=== PATIENT | male | born 1970 | race Caucasian/White ===

== ENCOUNTER 2023-03-02 16:42 | Inpatient (IN) | payer OTHER, SELFPAY ==
[2023-03-02] VITALS (16 sets, daily range): BP systolic 147–254; BP diastolic 84–138; PULSE 99–124; RESP 16–28; TEMP 36.4–36.9; O2SAT 86–94; BMI 36.6
--- NOTE | 2023-03-02 17:04 | EKG12_ITS ---
Test Reason : CP Blood Pressure : / mmHG Vent. Rate : 123 BPM Atrial Rate : 123 BPM P-R Int : 152 ms QRS Dur : 086 ms QT Int : 316 ms P-R-T Axes : 042 053 -37 degrees QTc Int : 452 ms Poor data quality, interpretation may be adversely affected Sinus tachycardia Possible Left atrial enlargement Nonspecific T wave abnormality Abnormal ECG Confirmed by SHERICE LITTLE, KATHARINA ([id number]), editor sound CONNOR MOSQUEDA ([id number]) on 03/11/2023 2:09:24 PM Referred By: COURTNEY/BREANA Confirmed By:KATHARINA SMILEY MD
--- NOTE | 2023-03-02 17:04 | CT_ITS ---
STUDY: CTA CHEST REASON FOR EXAM: Male, 52 years old. dyspnea RADIATION DOSAGE (If Supplied By Facility): CTDIvol = ( 15.04 ) mGy, DLP = ( 589.33 ) mGycm TECHNIQUE: The examination was performed with the intravenous administration of IV 100mL Isovue-370. Post-processing of the angiographic images was performed, with multiplanar reformation and 3D reconstruction. Individualized dose optimization techniques were used for this CT. COMPARISON: None. FINDINGS: Normal enhancement of the main pulmonary artery and right and left pulmonary arteries. Normal enhancement of the bilateral peripheral pulmonary arteries. There is no demonstrated pulmonary embolism. Normal thoracic aorta and visualized great vessels. There is no demonstrated aortic dissection. Heart is mildly enlarged. There is a small pericardial effusion and mild coronary artery calcification Normal mediastinum. Normal hilar regions. Normal visualized trachea and bronchi. The lungs are well expanded. There is bilateral interstitial thickening with multifocal patchy and diffuse groundglass opacity most likely representing pulmonary interstitial edema although coexisting inflammatory disease not excluded. There are small bilateral pleural effusions Normal chest wall structures. Normal osseous structures. Normal visualized upper abdomen. CT/CTA Chest W/WO Contrast IMPRESSION: Probable congestive failure with small pleural effusions.. Cannot definitively exclude coexisting inflammatory disease. No evidence for pulmonary embolus Electronically Signed: Arcadio Freire MD at 18:15 EST ,
--- NOTE | 2023-03-02 17:06 | EDS_ITS ---
HPI <AIDAN Grant - Last Filed: 03/02/23 19:40> History of Present Illness Chief Complaint: Chest Pain Narrative Narrative: 52-year-old male has had 1.5 weeks of progressive dyspnea on exertion and intermittent chest pain. Today the shortness of breath worsened and he has difficulty speaking. He has had midsternal chest pain and tightness for about an hour. He is also had a recent productive cough. No fever or chills. No GI symptoms. He states he quit smoking in the . He used to have hypertension and diabetes but lost weight and no longer needs to take medications. Since he moved to [place] he does not have a primary care doctor. He has a family cardiac history and states he had a heart catheterization about 4 years ago in [place] which was normal. No history of DVT/PE. He had a 9-hour car ride to [place] about 3 weeks ago. He states his right calf felt sore today but he has not noticed leg swelling. PFS <AIDAN Grant - Last Filed: 03/02/23 19:40> [facility] Home Medications fexofenadine 60 mg tablet (Jina Allergy) 120 mg PO DAILY 03/02/23 [History Last Taken Unknown] magnesium 250 mg tablet 250 mg PO DAILY 03/02/23 [History Last Taken Unknown] Allergy/AdvReac Type Severity Reaction Status Date / Time Penicillins Allergy Unknown Other Verified 03/02/23 16:50 Social History Smoking Status: Former smoker ROS <AIDAN Grant - Last Filed: 03/02/23 19:40> ROS ED ROS Narrative Constitutional: Negative for fever, chills, malaise. CVS: Positive for chest pain. Negative for palpitations, syncope. Respiratory: Positive for shortness of breath, cough. GI: Negative for abdominal pain, nausea, vomiting, diarrhea. EXAM <AIDAN Grant - Last Filed: 03/02/23 19:40> Physical Exam Narrative Exam Narrative: CONST: Patient sitting in no acute distress. EYES: Normal inspection. NECK: Normal inspection. RESP: No respiratory distress, CTAB. CVS: Rapid but regular rhythm, no murmur, no gallop. ABD: Soft and nontender, no guarding or rebound, nondistended. SKIN: Color normal, no rash, warm, dry, intact. EXTREMITIES: Normal appearance, no edema or palpable cords. 2+ radial DP pulses. NEURO: Oriented x4. PSYCH: Normal affect. Const Vital Signs: 03/02/23 16:44 03/02/23 16:50 03/02/23 16:50 Temperature 97.6 F L Temperature Source Oral Pulse Rate 124 H 120 H Respiratory Rate 21 H Respiratory Effort Short of Breath Respiratory Pattern Blood Pressure 254/138 H 254/138 H Blood Pressure Mean 176 176 Pulse Ox 92 Oxygen Delivery Method Room Air Oxygen Flow Rate (L/min) 03/02/23 17:24 03/02/23 17:24 03/02/23 17:28 Temperature Temperature Source Pulse Rate 110 H Respiratory Rate Respiratory Effort Respiratory Pattern Blood Pressure 197/118 H Blood Pressure Mean 144 Pulse Ox 86 91 Oxygen Delivery Method Room Air Nasal Cannula Oxygen Flow Rate (L/min) 2 03/02/23 17:37 03/02/23 19:17 Temperature Temperature Source Pulse Rate 112 H 116 H Respiratory Rate 20 H 20 H Respiratory Effort Respiratory Pattern Tachypnea Blood Pressure 191/122 H Blood Pressure Mean 145 Pulse Ox 94 Oxygen Delivery Method Nasal Cannula Oxygen Flow Rate (L/min) 4 <Dr. Tong Nicole MD - Last Filed: 03/02/23 17:31> Physical Exam Const Vital Signs: 03/02/23 16:44 03/02/23 16:50 03/02/23 16:50 Temperature 97.6 F L Temperature Source Oral Pulse Rate 124 H 120 H Respiratory Rate 21 H Respiratory Effort Short of Breath Respiratory Pattern Blood Pressure 254/138 H 254/138 H Blood Pressure Mean 176 176 Pulse Ox 92 Oxygen Delivery Method Room Air Oxygen Flow Rate (L/min) 03/02/23 17:24 03/02/23 17:24 03/02/23 17:28 Temperature Temperature Source Pulse Rate 110 H Respiratory Rate Respiratory Effort Respiratory Pattern Blood Pressure 197/118 H Blood Pressure Mean 144 Pulse Ox 86 91 Oxygen Delivery Method Room Air Nasal Cannula Oxygen Flow Rate (L/min) 2 03/02/23 17:37 03/02/23 19:17 Temperature Temperature Source Pulse Rate 112 H 116 H Respiratory Rate 20 H 20 H Respiratory Effort Respiratory Pattern Tachypnea Blood Pressure 191/122 H Blood Pressure Mean 145 Pulse Ox 94 Oxygen Delivery Method Nasal Cannula Oxygen Flow Rate (L/min) 4 MDM <AIDAN Grant - Last Filed: 03/02/23 19:40> [facility] Narrative Medical decision making narrative: History gathered from: Patient and significant other Patient has had progressive dyspnea on exertion and chest pain. He was profoundly hypertensive and tachycardic. 92% on room air. Heart is rapid but regular. Lungs had a faint wheeze that moved around after coughing so he was treated with DuoNebs. There is no lower extremity edema. Differential includes ACS, PE, CHF, pneumonia. EKG is sinus tachycardia at 123 bpm. There is motion artifact but there are diffuse ST changes which may be demand ischemia. No STEMI. Initial troponin is 115. CBC is WNL, BMP shows creatinine 1.54 with no prior for comparison. Glucose is 218 with normal CO2 and anion gap. CTA shows congestive heart failure with small pleural effusions. No PE. Patient was initially given IV labetalol 10 mg which transiently helped but he went back up to 240/110. He also became hypoxic and is requiring 4 L nasal cannula. After the CTA read I ordered IV labetalol 20 mg and Lasix 40 mg. I had ordered Nitropaste but it is contraindicated since he took Viagra within the last 24 hours. Repeat EKG is sinus rhythm at 107 bpm with nonspecific changes. After IV labetalol he is 191/122. I spoke with the hospitalist who recommended starting a Cardene drip and admission to the ICU. 25 minutes of critical care time was consumed by evaluation of the patient, treatment and planning, discussion with consultants Lab Data Attestation: I reviewed the patient's lab results. Labs: Laboratory Results - last 24 hr 03/02/23 16:45 WBC 9.8 RBC 5.89 Hgb 14.9 Hct 48.3 MCV 82.0 MCH 25.3 L MCHC 30.8 L RDW Std Deviation 41.5 RDW Coeff of Vanessa 14.0 Plt Count 336 MPV 10.6 Immature Gran % (Auto) 0.500 Neut % (Auto) 70.6 H Lymph % (Auto) 19.3 [place] % (Auto) 7.2 Eos % (Auto) 1.6 Baso % (Auto) 0.8 Absolute Neuts (auto) 6.9 Absolute Lymphs (auto) 1.89 Nucleated RBC % 0 Sodium 139 Potassium 3.7 Chloride 108 H Carbon Dioxide 27.0 Anion Gap 4 L BUN 25 H Creatinine 1.54 H Est GFR (MDRD) Af Amer 62 Est GFR (MDRD) Non-Af 51 L BUN/Creatinine Ratio 16.2 Glucose 214 H Calcium 8.5 Troponin I High Sens 115 H B-Natriuretic Peptide 148.7 H Radiography Diagnostic Testing: Clinical Impression(s) from Imaging Studies Chest CTA 03/02/23 17:04 IMPRESSION: Probable congestive failure with small pleural effusions.. Cannot definitively exclude coexisting inflammatory disease. No evidence for pulmonary embolus Electronically Signed: Arcadio Freire MD at 18:15 EST Reading Location ID and State: [facility] / [place] Tel , Service support , EKG Initial EKG: Attestation: I personally reviewed and interpreted this EKG as follows: Interpretation: Sinus Tachycardia and Non-Specific ST Changes Comments: Sinus tachycardia at 123 bpm, nonspecific T wave abnormalities, motion artifact Repeat EKG shows sinus tachycardia at 107 bpm, no STEMI criteria <Dr. Tong Nicole MD - Last Filed: 03/02/23 17:31> [facility] Lab Data Labs: Laboratory Results - last 24 hr 03/02/23 16:45 WBC 9.8 RBC 5.89 Hgb 14.9 Hct 48.3 MCV 82.0 MCH 25.3 L MCHC 30.8 L RDW Std Deviation 41.5 RDW Coeff of Vanessa 14.0 Plt Count 336 MPV 10.6 Immature Gran % (Auto) 0.500 Neut % (Auto) 70.6 H Lymph % (Auto) 19.3 [place] % (Auto) 7.2 Eos % (Auto) 1.6 Baso % (Auto) 0.8 Absolute Neuts (auto) 6.9 Absolute Lymphs (auto) 1.89 Nucleated RBC % 0 Sodium 139 Potassium 3.7 Chloride 108 H Carbon Dioxide 27.0 Anion Gap 4 L BUN 25 H Creatinine 1.54 H Est GFR (MDRD) Af Amer 62 Est GFR (MDRD) Non-Af 51 L BUN/Creatinine Ratio 16.2 Glucose 214 H Calcium 8.5 Troponin I High Sens 115 H B-Natriuretic Peptide 148.7 H Radiography Diagnostic Testing: Clinical Impression(s) from Imaging Studies Chest CTA 03/02/23 17:04 IMPRESSION: Probable congestive failure with small pleural effusions.. Cannot definitively exclude coexisting inflammatory disease. No evidence for pulmonary embolus Electronically Signed: Arcadio Freire MD at 18:15 EST Reading Location ID and State: [address] [place] [address] Tel , Service support , Treatment and Re-Evaluation :: I have personally performed a face to face assessment of the patient and have reviewed the MEAGAN Note. I performed a substantive portion of the visit including all aspects of the following. My dow findings include: History: Patient presents with dyspnea and some mild chest pain. He states about 2 weeks ago he started getting dyspneic. But is gotten progressively worse. He does hear wheezing sometimes. He is coughing. He just brought up some yellowish-brown sputum. Denies blood. He is also had some chest heaviness. He also had a recent 9-hour driving trip to [place]. But has never had a DVT or PE. Patient used to be hypertensive and diabetic but dropped weight from about 315 down to about 255 pounds and no longer needed to be on medications. He states his last blood pressure check was normal about 6 months ago at the [facility]. He has not smoked since the . Exam: Patient does look mildly dyspneic but is able to carry on conversation. He had sats that had 86% on room air in the room so he was placed on 2 L and doing better. Heart is mildly tachycardic about 105 currently. On the monitor at sinus rhythm without ectopy. I hear no murmur. Tones are not muffled. Lungs do have some mild end expiratory wheeze. It is very quiet though. I hear no rhonchi. Abdomen is mildly obese but is not tender. Legs are not tender or swollen. He states sometimes he gets cramping in his legs if he works hard but that is not new. Medical Decision Making: With his tachycardia, hypoxia, dyspnea, recent flight we will do CTA of his chest. We are going to work to get his blood pressure down to. I will give him a breathing treatment even though this could raise his heart rate slightly. This may also help him. Discharge Plan Triage Chief Complaint: Chest Pain ED Midlevel Provider: Argenis Goodman ED Provider: Tong Nicole Dx/Rx/DC Orders Clinical Impression: Creatinine elevation, Hypertensive emergency, CHF (congestive heart failure), Elevated troponin, Hypoxia Prescriptions: No Action magnesium 250 mg tablet 250 mg PO DAILY fexofenadine [Jina Allergy] 60 mg tablet 120 mg PO DAILY Primary Care Provider: Care Physician,No Primary Referrals: Care Physician,No Primary [Primary Care Provider] -
[2023-03-02 17:13] LABS: Absolute Lymphocyte Count 1.89 X10^3/uL (0.83-4.51); Absolute Neutrophil Count 6.9 X10^3/uL (2.0-7.7); Basophil# 0.08 X10^3/uL; Basophil% 0.8 % (0-1); Eosinophil# 0.16 X10^3/uL; Eosinophils% 1.6 % (0-5); Hematocrit 48.3 % (40-54); Hemoglobin 14.9 g/dL (13.0-16.5); Lymphocyte # 1.89 X10^3/ul (0.83-4.51); Lymphocyte % 19.3 % (19-41); Mean Corp Hgb Conc 30.8 g/dL (32-36); Mean Corpuscular Hgb 25.3 pg (27.0-32.0); Mean Platelet Vol. 10.6 fl (6.2-12.0); Monocyte% 7.2 % (0-10); NRBC Flagged by Analyzer 0 % (0-5); Neutrophil # 6.91 X10^3/uL (2.7-7.7); Neutrophil % 70.6 % (47-70); Platelet Count 336 K/mm3 (150-450); RBC Distribution Width SD 41.5 fl (35.1-43.9); Red Blood Count 5.89 M/mm3 (4.6-6.2); White Blood Count 9.8 K/mm3 (4.4-11.0)
[2023-03-02] MEDS: Labetalol (Prefilled) 20 MG/4 ML 10 MG IV (17:16)
[2023-03-02] MEDS: Aspirin 325 MG Tablet PO (17:16)
[2023-03-02] MEDS: Ipratropium/Albuterol Sulfate 3 ML AMPUL.NEB INHALATION (17:36)
[2023-03-02 17:41] LABS: Anion Gap 4 (5-15); BUN 25 mg/dL (7-18); BUN/Creat Ratio 16.2 RATIO (10-20); Calcium,Total 8.5 mg/dL (8.5-10.1); Chloride 108 mmol/L (98-107); Creatinine, Serum 1.54 mg/dL (0.70-1.30); EST Glomerular Filtration Rate 51 mL/min (>60); Est Glom Filt Rate - Afr Amer 62 mL/min (>60); Glucose 214 mg/dL (74-106); Potassium 3.7 mmol/L (3.5-5.1); Sodium Level 139 mmol/L (136-145); Troponin-I HS 115 pg/mL (3.0-78.0)
--- NOTE | 2023-03-02 18:21 | EKG12_ITS ---
Test Reason : REPEAT Blood Pressure : / mmHG Vent. Rate : 107 BPM Atrial Rate : 107 BPM P-R Int : 160 ms QRS Dur : 090 ms QT Int : 348 ms P-R-T Axes : 041 059 -19 degrees QTc Int : 464 ms Sinus tachycardia Possible Left atrial enlargement T wave abnormality, consider inferior ischemia Abnormal ECG Confirmed by SHERICE LITTLE, KATHARINA ([id number]), editorial writer CONNOR MOSQUEDA ([id number]) on 03/11/2023 2:09:06 PM Referred By: Confirmed By:KATHARINA SMILEY MD
[2023-03-02] MEDS: Furosemide 40 MG/4 ML Vial IV (18:41)
[2023-03-02] MEDS: Labetalol (Prefilled) 20 MG/4 ML IV (18:41)
[2023-03-02 18:59] LABS: BNP,B-Type NATRIURETIC PEPTIDE 148.7 pg/mL (0-100)
--- NOTE | 2023-03-02 19:32 | PCM.HP.STD ---
[facility] - General General Date of Admission: 03/02/23 Date of Service: 03/02/23 Chief Complaint: Chest pain, SOB and Headache HPI Narrative LATONIA GONSALES, is a 52 M with a past medical history of essential hypertension, hyperlipidemia, tobacco abuse (now quit), seasonal allergies, history of morbid obesity of 350 pounds; now down to 249 pounds with a BMI of 36.7 this admission, erectile dysfunction; on as needed sildenafil, history of angina; with LHC negative for flow-limiting ischemia (~2020) and he admits to a very strong family history of CAD in his brother (CABG) and father (stents) who presents to [facility] ER complaining of chest pain, SOB and headache. Mr. Gonsales reports the symptoms began approximately 10 days prior to admission with LOYD that was new after starting a new job about 2 weeks ago that is very physically demanding. He also admits to increased life stress since the recent of his father about a week ago (with the exact cause of unknown) so he also had to take a week off from his new job which further exacerbated his already high stress levels. Then earlier on 03/02/2023 he acutely worsened with SOB at rest with him only being able to speak in 3-4 word sentences along with chest pain that was substernal, pressure-like, ~3-4/10 and radiating into his Left shoulder with severe diaphoresis and with exertion making the pain worse - but the pain was not relieved by rest so he finally decided to come in for further evaluation and treatment. He also admits to an associated tension-type headache that was moderate and coincided with his other symptoms outline above but he denies other recent acute illness. He also admits to a chronic, minimally productive cough with greenish sputum with scant blood that is unchanged from previous. He denies associated fever, vomiting, diarrhea, constipation, shortness of breath or chest pain at this time. In the ER he was noted to have an initial blood pressure of 254/138 mm Hg present on admission with an elevated troponin and increased BNP suggestive of acute troponin leak due to acute cardiac strain and acute exacerbation of CHF (unspecified) consistent with hypertensive emergency complicated by laboratory evidence of acute kidney injury with an elevated creatinine of 1.54 mg/dL and an eGFR of 51 mg/dL with hyperglycemia of 214 mg/dL present on admission long with a hemoglobin A1c of 10.4% this admission consistent with poorly-controlled diabetes mellitus type-2 compounded by clinical evidence of acute bronchitis with acute hypoxic respiratory insufficiency and he was then admitted to the ICU so he could be started on a Cardene drip with a goal to lower his blood pressure to the ~180 mmHg systolic range overnight for a stay that is expected to be greater than 48 hours. [facility] Home Medications fexofenadine 60 mg tablet (Jina Allergy) 120 mg PO DAILY allergies 03/02/23 [History Last Taken 03/02/23] magnesium 250 mg tablet 250 mg PO DAILY supplement 03/02/23 [History Last Taken 03/02/23] sildenafil 25 mg tablet (Viagra) 25 mg PO DAILY PRN sexual activity 03/02/23 [History Last Taken 03/01/23] Allergy/AdvReac Type Severity Reaction Status Date / Time Penicillins Allergy Unknown Other Verified 03/02/23 16:50 Social History Smoking Status: Former smoker ROS ROS Narrative Review of systems: Constitutional: Patient admits to severe diaphoresis that coincided with his chest pain Eyes: Patient denies visual changes ENT: Patient denies sore throat or runny nose Heart: Patient admits to chest pain that is pressure-like and worse with exertion Respiratory: Patient admits to shortness of breath at rest that is now improved. He also admits to chronic cough productive of minimal greenish sputum with blood-tinge. Gastrointestinal: Patient denies abdominal pain, nausea, vomiting or diarrhea Neurologic: Patient admits to headache but denies focal neurologic deficits Integumentary: Patient denies rash or abscess Hematologic: Patient denies easy bruisability or easy bleeding Allergic: Patient denies rash, lip swelling or tongue swelling 14 point review systems otherwise negative except for positives in HPI noted above. Vital Signs Vital Signs Vital Signs: 03/02/23 16:44 03/02/23 16:50 03/02/23 16:50 Temperature 97.6 F L Temperature Source Oral Pulse Rate 124 H 120 H Respiratory Rate 21 H Respiratory Effort Short of Breath Respiratory Pattern Blood Pressure 254/138 H 254/138 H Blood Pressure Mean 176 176 Pulse Ox 92 Oxygen Delivery Method Room Air Oxygen Flow Rate (L/min) 03/02/23 17:24 03/02/23 17:24 03/02/23 17:28 Temperature Temperature Source Pulse Rate 110 H Respiratory Rate Respiratory Effort Respiratory Pattern Blood Pressure 197/118 H Blood Pressure Mean 144 Pulse Ox 86 91 Oxygen Delivery Method Room Air Nasal Cannula Oxygen Flow Rate (L/min) 2 03/02/23 17:37 03/02/23 19:17 Temperature Temperature Source Pulse Rate 112 H 116 H Respiratory Rate 20 H 20 H Respiratory Effort Respiratory Pattern Tachypnea Blood Pressure 191/122 H Blood Pressure Mean 145 Pulse Ox 94 Oxygen Delivery Method Nasal Cannula Oxygen Flow Rate (L/min) 4 Physical Exam Const alert, oriented x3, no apparent distress and average body habitus General Appearance: cooperative HEENT normocephalic, head/scalp atraumatic, hearing grossly normal bilaterally and moist oral mucous membranes Eyes PERRL, EOMs intact bilaterally and conjunctivae normal Neck no lymphadenopathy, supple and no JVD Resp Resp Narrative: Mildly labored respirations. Cardio Cardio Narrative: Sinus tachycardia at ~116 bpm noted. GI normal to inspection, nondistended, normoactive bowel sounds, soft to palpation, non-tender and non-distended Extremity normal to inspection Skin Skin Narrative: Patient has no evidence of rash at this time. Neuro oriented x3, CN's II-XII intact bilaterally, moves all extremities and no focal motor deficits Sensorium / Orientation: awake, alert, oriented to person, oriented to place and oriented to time Speech: speech normal Motor Exam: strength 5/5 throughout Psych affect normal Results Lab / Micro Data Attestation: I reviewed the patient's lab results. Lab results narrative: [facility] Imaging Services [address] [place] [id number] CTA Chest W/WO Contrast MR#: [id number] Acct: [id number] Name: LATONIA GONSALES Rep #: [id number] : 1970 M 52 From: Arcadio Freire MD PCP: Care Physician,No Primary Status: REG ER Study: CTA Chest W/WO Contrast Date of Exam: 03/02/23 Exam# [id number] Ordering Dr: Argenis Goodman STUDY: CTA CHEST REASON FOR EXAM: Male, 52 years old. dyspnea RADIATION DOSAGE (If Supplied By Facility): CTDIvol = ( 15.04 ) mGy, DLP = ( 589.33 ) mGycm TECHNIQUE: The examination was performed with the intravenous administration of IV 100mL Isovue-370. Post-processing of the angiographic images was performed, with multiplanar reformation and 3D reconstruction. Individualized dose optimization techniques were used for this CT. COMPARISON: None. FINDINGS: Normal enhancement of the main pulmonary artery and right and left pulmonary arteries. Normal enhancement of the bilateral peripheral pulmonary arteries. There is no demonstrated pulmonary embolism. Normal thoracic aorta and visualized great vessels. There is no demonstrated aortic dissection. Heart is mildly enlarged. There is a small pericardial effusion and mild coronary artery calcification Normal mediastinum. Normal hilar regions. Normal visualized trachea and bronchi. The lungs are well expanded. There is bilateral interstitial thickening with multifocal patchy and diffuse groundglass opacity most likely representing pulmonary interstitial edema although coexisting inflammatory disease not excluded. There are small bilateral pleural effusions Normal chest wall structures. Normal osseous structures. Normal visualized upper abdomen. CT/CTA Chest W/WO Contrast IMPRESSION: Probable congestive failure with small pleural effusions.. Cannot definitively exclude coexisting inflammatory disease. No evidence for pulmonary embolus Electronically Signed: Arcadio Freire MD at 18:15 EST Reading Location ID and State: [address] [place] [address] Tel , Service support , CC: AIDAN Grant; No Primary Care Physician ~ Manager Data Center: Signed 03/03/23 04:00 03/02/23 16:45 Labs: Laboratory Results - last 24 hr 03/02/23 16:45: WBC 9.8, RBC 5.89, Hgb 14.9, Hct 48.3, MCV 82.0, MCH 25.3 L, MCHC 30.8 L, RDW Std Deviation 41.5, RDW Coeff of Vanessa 14.0, Plt Count 336, MPV 10.6, Immature Gran % (Auto) 0.500, Neut % (Auto) 70.6 H, Lymph % (Auto) 19.3, [place] % (Auto) 7.2, Eos % (Auto) 1.6, Baso % (Auto) 0.8, Absolute Neuts (auto) 6.9, Absolute Lymphs (auto) 1.89, Nucleated RBC % 0, Sodium 139, Potassium 3.7, Chloride 108 H, Carbon Dioxide 27.0, Anion Gap 4 L, BUN 25 H, Creatinine 1.54 H, Est GFR (MDRD) Af Amer 62, Est GFR (MDRD) Non-Af 51 L, BUN/Creatinine Ratio 16.2, Glucose 214 H, Calcium 8.5, Troponin I High Sens 115 H, B-Natriuretic Peptide 148.7 H Radiology Impression Chest CTA 03/02/23 17:04 IMPRESSION: Probable congestive failure with small pleural effusions.. Cannot definitively exclude coexisting inflammatory disease. No evidence for pulmonary embolus Electronically Signed: Arcadio Freire MD at 18:15 EST Reading Location ID and State: [facility] / [place] Tel , Service support , Assessment & Plan Assessment/Plan (1) Hypertensive emergency: (2) CHF (congestive heart failure): QUALIFIERS: Heart failure chronicity: acute Heart failure type: unspecified Qualified Code(s): I50.9 - Heart failure, unspecified (3) Elevated troponin: (4) Creatinine elevation: PLAN: Plan 1. Hypertensive emergency with blood pressure of 254/138 mm Hg present on admission with concomitant chest pain, SOB and headache - Admit to ICU. Continue Cardene drip begun in the ER and titrate to slowly decrease blood pressure into the 180/90 mmHg range overnight. Check urine tox screen to evaluate for any stimulant-type medications that may explain his symptoms. Finally, we will consult the wink cutter operator on-call to see this patient on rounds in the a.m. for further recommendations with help appreciated in advance. 2. Acute exacerbation of congestive heart failure (of unspecified type at this time) with elevated BNP and elevated troponin likely due to acute cardiac strain arising from #1 - Give IV Lasix and recheck BNP and chest x-ray in the a.m. Give aspirin, statin, Plavix, full dose Lovenox and as needed nitroglycerin for chest pain. Check echocardiogram to evaluate left ventricular ejection fraction. 3. Suspected acute kidney injury with elevated creatinine of 1.54 mg/dL and eGFR of 51 mg/dL present on admission complicating #1 & #2 - Continue supportive care and recheck BMP in the a.m. to assess for potential improvement. Check urinalysis to evaluate for possible proteinuria or other evidence of damage to glomeruli in light of #1. 4. Acute hypoxic respiratory insufficiency due to #1 - #3 - Continue supplemental oxygen begun in the ER and wean as tolerated. 5. Diabetes mellitus type 2; poorly controlled with hyperglycemia of 214 mg/dL present on admission and hemoglobin A1c of 10.4% this admission compounding #1 - #4 - Keep NPO for now in case acute cardiac intervention is needed. Fingerstick blood sugars every 6 hours plus sliding scale insulin. Checked hemoglobin A1c to objectively assess diabetic control. Apparently his diabetes has robustly returned in spite of his weight loss with severe metabolic syndrome. Finally, we will consult the clinical dietitian/hematology nurse educator to see this patient in the a.m. on rounds for further recommendations and teaching with help appreciated in advance. 6. Clinical evidence of acute bronchitis with congestion on chest imaging and productive cough with green sputum - Start doxycycline 100 mg IV twice daily. Also give Mucinex 600 mg p.o. twice daily scheduled. 7. Erectile dysfunction; on as needed sildenafil - Noted. Refrigeration Lead will be asked to assess if this patient would be safe to be continued on this agent at time of discharge. 8. DVT prophylaxis - Patient on full dose Lovenox for #2. Total time: Approximately 75 minutes. Charges/Coding Visit Charges Inpatient E&M: 71957 Init Hosp L3
[2023-03-02 19:38] LABS: Troponin-I HS 104 pg/mL (3.0-78.0)
--- NOTE | 2023-03-02 19:53 | ECHOCS_ITS ---
Reason For Study: CHF Procedure This was a 2D Doppler, Color Flow transthoracic echocardiogram. The study was technically difficult. Contrast injection was performed. Exam performed portable in ICU/CCU. Left Ventricle Moderate eccentric left ventricular hypertrophy. The estimated ejection fraction is 45-50 %. Right Ventricle Normal right ventricle. The right ventricle is normal in size, function, and thickness. Atria The left atrium is moderately enlarged. Normal right atrium. Mitral Valve The mitral valve is structurally normal. No prolapse or stenosis seen. Mild (1+) mitral valve insufficiency. Tricuspid Valve Normal tricuspid valve. Mild tricuspid valve insufficiency. Aortic Valve The aortic valve is not well visualized in the short axis view. Pulmonic Valve The pulmonic valve is not well visualized. Great Vessels Normal aortic root. Pericardium/Pleural No pericardial effusion. Medication Diluted definity 3ml given slow IV push to enhance endocardial definition. MMode/2D Measurements & Calculations LVIDd: 5.8 cm IVSd: 1.4 cm Ao root diam: 3.2 cm LVIDs: 5.1 cm LVPWd: 1.9 cm LA dimension: 5.3 cm FS: 12.3 % LAV(MOD-bp): 90.8 ml LA A4 area: 26.3 cm2 RA A4 area: 21.3 cm2 LAV(MOD-bp) Indexed: 40.2 ml/m2 LAV(MOD-sp2): 90.2 ml LAV(MOD-sp4): 85.0 ml TAPSE: 2.0 cm Time Measurements MV dec time: 0.12 sec Doppler Measurements & Calculations MV E max alessandro: 115.0 cm/sec Lat Peak E' Alessandro: 11.9 cm/sec Med Peak E' Alessandro: 10.4 cm/sec MV A max alessandro: 60.6 cm/sec E/E' lat: 9.7 E/E' med: 11.1 MV E/A: 1.9 MV V2 max: 120.1 cm/sec MV P1/2t max alessandro: 121.7 cm/sec Ao V2 max: 142.6 cm/sec MV max P.8 mmHg MV P1/2t: 42.6 msec Ao max P.1 mmHg MV V2 mean: 69.5 cm/sec MV dec slope: 837.1 cm/sec2 Ao V2 mean: 92.3 cm/sec MV mean P.3 mmHg MVA(P1/2t): 5.2 cm2 Ao mean P.1 mmHg MV V2 VTI: 21.8 cm Ao V2 VTI: 21.5 cm AV (velocity ratio): 0.81 LV V1 max: 108.3 cm/sec MR max alessandro: 584.1 cm/sec PA V2 max: 78.9 cm/sec LV V1 max P.7 mmHg MR max P.5 mmHg PA V2 mean: 59.0 cm/sec LV V1 mean P.8 mmHg MR mean alessandro: 443.7 cm/sec LV V1 mean: 80.3 cm/sec MR mean P.6 mmHg LV V1 VTI: 17.4 cm MR VTI: 158.7 cm ECHO/Echo Complete W/ Contrast Interpretation Summary The estimated ejection fraction is 45-50 %. Moderate concentric left medical hypertrophy With interventricular septal diameter of 1.4 cm, left ventricular posterior wal l diameter 1.9 cm. Moderate left atrial enlargement No previous study to compare Ordering Physician: Elder Russo Performed By: Christian Bosch RCS
[2023-03-02] MEDS: NICARdipine 25 MG in 0.9% Normal Saline (250mL Bag) 240 ML 50 MG CONT INF (20:01)
[2023-03-02 20:56] LABS: Bacteria 0 SEEN /hpf (None Seen); Mucous, Urine 0 SEEN /hpf (<or=2+); Red Blood Cells-Urine 0 SEEN /hpf (0-5); Squamous Epithelial Cells - UA 0 SEEN /hpf (0-5); White Blood Cells 0 SEEN /hpf (0-5)
[2023-03-02 20:57] LABS: Color, Urine Yellow (Yellow); Glucose, Dipstick 250 mg/dl (Normal); Ketone-Dipstick Negative (Negative); Leukocyte Esterase-Dipstick Negative /ul (Negative); Nitrite-Dipstick Negative (Negative); Occult Blood-Urine Negative /ul (Negative); Protein-Dipstick Negative (Negative); Urine Bilirubin Dipstick Negative (Negative); Urine Clarity Clear (Clear); Urine Urobilinogen Normal (Normal); Urine pH 6.5 (5.0 - 8.0)
[2023-03-02 21:13] LABS: Amphetamine Urine VISTA NEGATIVE (<1000 ng/mL); Barbiturate Urine VISTA NEGATIVE (< 200 ng/mL); Benzodiazepine Urine VISTA NEGATIVE (< 200 ng/mL); Cocaine Urine VISTA NEGATIVE (< 300 ng/mL); Ecstacy Urine VISTA NEGATIVE (< 500 ng/mL); Methadone Urine VISTA NEGATIVE (< 300 ng/mL); PCP Urine VISTA NEGATIVE (< 25 ng/mL); THC Urine VISTA NEGATIVE (< 50 ng/mL); Vista UDS pH Range 6
[2023-03-02] MEDS: Atorvastatin Calcium 80 MG Tablet PO (21:14)
[2023-03-02] MEDS: Clopidogrel Bisulfate 75 MG Tablet PO (21:14)
[2023-03-02] MEDS: Morphine 2 MG/ML Syringe IV (22:44)
[2023-03-02] MEDS: 0.9% Saline Lock 10 ML Syringe IV (22:44)
[2023-03-02] MEDS: NICARdipine 25 MG in 0.9% Normal Saline (250mL Bag) 240 ML 100 MG CONT INF (22:54)
[2023-03-02 23:20] LABS: Troponin-I HS 106 pg/mL (3.0-78.0)
[2023-03-02 23:35] LABS: Hemoglobin A1c 10.6 % (3.8-5.6)
[2023-03-03] VITALS (37 sets, daily range): BP systolic 122–180; BP diastolic 61–116; PULSE 77–102; RESP 16–24; TEMP 36–37.1; O2SAT 90–97; BMI 36.5
[2023-03-03] MEDS: NICARdipine 25 MG in 0.9% Normal Saline (250mL Bag) 240 ML 80 MG CONT INF (01:46)
[2023-03-03 04:06] LABS: Absolute Neutrophil Count 5.5 X10^3/uL (2.0-7.7); Basophil# 0.06 X10^3/uL; Basophil% 0.7 % (0-1); Eosinophil# 0.16 X10^3/uL; Eosinophils% 1.9 % (0-5); Hematocrit 44.5 % (40-54); Lymphocyte % 21.5 % (19-41); Mean Corp Hgb Conc 31.5 g/dL (32-36); Mean Corpuscular Hgb 25.6 pg (27.0-32.0); Mean Corpuscular Volume 81.5 fL (80-94); Mean Platelet Vol. 10.3 fl (6.2-12.0); Monocyte# 0.81 X10^3/uL; Monocyte% 9.7 % (0-10); NRBC Flagged by Analyzer 0 % (0-5); Neutrophil # 5.49 X10^3/uL (2.7-7.7); Neutrophil % 65.7 % (47-70); Platelet Count 294 K/mm3 (150-450); RBC Distribution Width SD 40.4 fl (35.1-43.9); Red Blood Count 5.46 M/mm3 (4.6-6.2); White Blood Count 8.4 K/mm3 (4.4-11.0)
[2023-03-03 04:58] LABS: ALB/GLOB Ratio 0.7 RATIO (0.9-2.4); AST(SGOT) 24 U/L (15-37); Alanine Aminotransfer ALT/SGPT 52 U/L (16-61); Albumin, Serum 2.7 g/dL (3.2-5.0); Alkaline Phosphatase 84 U/L (45-117); Anion Gap 6 (5-15); BUN 21 mg/dL (7-18); BUN/Creat Ratio 14.9 RATIO (10-20); Chloride 108 mmol/L (98-107); Creatinine, Serum 1.41 mg/dL (0.70-1.30); EST Glomerular Filtration Rate 56 mL/min (>60); Est Glom Filt Rate - Afr Amer 68 mL/min (>60); Estimated Creatinine Clearance 61.98 ml/min; Globulin 3.7 g/dL (2.2-4.2); Glucose 223 mg/dL (74-106); Magnesium 2.1 mg/dL (1.6-2.6); Phosphorus 3.1 mg/dL (2.5-4.9); Protein, Total 6.4 g/dL (6.4-8.2); Sodium Level 140 mmol/L (136-145); Thyroid Stim Hormone (TSH) 1.78 uIU/mL (0.358-3.74)
--- NOTE | 2023-03-03 05:55 | RAD_ITS ---
EXAM: XR CHEST, 1 VIEW CLINICAL INDICATION: Acute exacerbation of CHF Acute exacerbation of CHF TECHNIQUE: Frontal view of the chest. COMPARISON: CTA chest 03/02/2023. FINDINGS: LUNGS AND PLEURAL SPACES: Unremarkable. No consolidation or edema. No pneumothorax. No effusion. HEART: The heart is mildly enlarged. MEDIASTINUM: Central airways and mediastinal contour are unremarkable. BONES/JOINTS: There are multilevel degenerative changes in the visualized spine. SOFT TISSUES: Unremarkable. RAD/Chest 1 View (Portable) IMPRESSION: 1. Mild cardiomegaly. 2. No evidence for acute cardiopulmonary pathology. Electronically Signed: Doug Simmons MD at 6:32 EST Reading Location ID and State: [facility] / [place] , Service support ,
[2023-03-03] MEDS: NICARdipine 25 MG in 0.9% Normal Saline (250mL Bag) 240 ML CONT INF (06:00)
--- NOTE | 2023-03-03 07:20 | PCM.PN.HOSP ---
Reason for Visit Reason for Visit: Diagnoses Hypertensive emergency (03/02/23) Heart failure, unspecified (03/02/23) Other specified abnormal findings of blood chemistry (03/02/23) Subjective Subjective Feels well. No chest pain. Objective Data Objective Data Vital Signs: Vital Signs Temp Pulse Resp BP Pulse Ox O2 Del Method O2 Flow Rate 37.1 C 86 16 137/92 H 94 Nasal Cannula 6 03/03/23 04:00 03/03/23 06:15 03/03/23 06:00 03/03/23 06:15 03/03/23 06:00 03/03/23 06:00 03/03/23 06:00 Oxygen Flow Rate (L/min) 6 Oxygen Delivery Method Nasal Cannula Weight: 112.1 kg Body Mass Index (BMI) 36.5 Intake & Output: Intake and Output for Last 24 Hours 03/01/23 03/02/23 03/03/23 23:59 23:59 23:59 Intake Total 510.00 / 810.00 896.25 / 896.25 Output Total 800 / 2300 2250 / 2250 Balance -290.00 / -1490.00 -1353.75 / -1353.75 Lab / Micro Data 03/03/23 04:00 03/03/23 04:00 Labs: Laboratory Results - last 24 hr 03/02/23 16:45: WBC 9.8, RBC 5.89, Hgb 14.9, Hct 48.3, MCV 82.0, MCH 25.3 L, MCHC 30.8 L, RDW Std Deviation 41.5, RDW Coeff of Vanessa 14.0, Plt Count 336, MPV 10.6, Immature Gran % (Auto) 0.500, Neut % (Auto) 70.6 H, Lymph % (Auto) 19.3, [place] % (Auto) 7.2, Eos % (Auto) 1.6, Baso % (Auto) 0.8, Absolute Neuts (auto) 6.9, Absolute Lymphs (auto) 1.89, Nucleated RBC % 0, Sodium 139, Potassium 3.7, Chloride 108 H, Carbon Dioxide 27.0, Anion Gap 4 L, BUN 25 H, Creatinine 1.54 H, Est GFR (MDRD) Af Amer 62, Est GFR (MDRD) Non-Af 51 L, BUN/Creatinine Ratio 16.2, Glucose 214 H, Calcium 8.5, Troponin I High Sens 115 H, B-Natriuretic Peptide 148.7 H 03/02/23 19:02: Troponin I High Sens 104 H 03/02/23 20:50: Urine Color Yellow, Urine Clarity Clear, Urine pH 6.5, Ur Specific [place] 1.010, Urine Protein Negative, Urine Glucose (UA) 250 H, Urine Ketones Negative, Urine Occult Blood Negative, Urine Nitrite Negative, Urine Bilirubin Negative, Urine Urobilinogen Normal, Ur Leukocyte Esterase Negative, Urine RBC 0 SEEN, Urine WBC 0 SEEN, Ur Squamous Epith Cells 0 SEEN, Urine Bacteria 0 SEEN, Urine Mucus 0 SEEN, Urine Opiates Screen NEGATIVE, Urine Methadone Screen NEGATIVE, Ur Barbiturates Screen NEGATIVE, Ur Phencyclidine Scrn NEGATIVE, Ur Amphetamines Screen NEGATIVE, MDMA (Ecstasy) Screen NEGATIVE, U Benzodiazepines Scrn NEGATIVE, Urine Cocaine Screen NEGATIVE, U Cannabinoids Screen NEGATIVE, Ur Drug Screen Comment 03/02/23 22:45: Hemoglobin A1c 10.6 H, Troponin I High Sens 106 H 03/03/23 04:00: WBC 8.4, RBC 5.46, Hgb 14.0, Hct 44.5, MCV 81.5, MCH 25.6 L, MCHC 31.5 L, RDW Std Deviation 40.4, RDW Coeff of Vanessa 14.0, Plt Count 294, MPV 10.3, Immature Gran % (Auto) 0.500, Neut % (Auto) 65.7, Lymph % (Auto) 21.5, [place] % (Auto) 9.7, Eos % (Auto) 1.9, Baso % (Auto) 0.7, Absolute Neuts (auto) 5.5, Absolute Lymphs (auto) 1.80, Nucleated RBC % 0, Sodium 140, Potassium 3.0 L, Chloride 108 H, Carbon Dioxide 26.0, Anion Gap 6, BUN 21 H, Creatinine 1.41 H, Estim Creat Clear Calc 61.98, Est GFR (MDRD) Af Amer 68, Est GFR (MDRD) Non-Af 56 L, BUN/Creatinine Ratio 14.9, Glucose 223 H, Calcium 8.0 L, Phosphorus 3.1, Magnesium 2.1, Total Bilirubin 0.50, AST 24, ALT 52, Alkaline Phosphatase 84, Total Protein 6.4, Albumin 2.7 L, Globulin 3.7, Albumin/Globulin Ratio 0.7 L, TSH 1.78 Radiography Diagnostic Testing: Radiology Impression Chest CTA 03/02/23 17:04 IMPRESSION: Probable congestive failure with small pleural effusions.. Cannot definitively exclude coexisting inflammatory disease. No evidence for pulmonary embolus Electronically Signed: Arcadio Freire MD at 18:15 EST , Chest X-Ray 03/03/23 05:55 IMPRESSION: 1. Mild cardiomegaly. 2. No evidence for acute cardiopulmonary pathology. Electronically Signed: Doug Simmons MD at 6:32 EST , Physical Exam Const alert and no apparent distress Resp normal respiratory effort, no retractions, no use of accessory muscles and clear to auscultation bilaterally Cardio regular rate, regular rhythm, S1 normal heart sound and S2 normal heart sound GI normal to inspection, nondistended, normoactive bowel sounds, soft to palpation, non-tender and non-distended Assessment & Plan Assessment/Plan (1) Hypertensive emergency: PLAN: POA: Hypertensive emergency with blood pressure of 254/138 mm Hg present on admission with concomitant chest pain, SOB and headache Stared on nicardipine gtt. Blood pressure greatly improved after initiation of nicardipine gtt. DC gtt. Start amlodipine and low-dose ACEi. UDS negative. Hold off on B-blockers for now given acute CHF. (2) CHF (congestive heart failure): QUALIFIERS: Heart failure chronicity: acute Heart failure type: unspecified Qualified Code(s): I50.9 - Heart failure, unspecified PLAN: Acute. Resolved. may be related with HTN emergency. Question if he had flash pulmonary edema. On Furosemide IV, change to PO Start ACEi Check echo. (3) Elevated troponin: PLAN: Unclear significance. I suspect demand ischemia from CHF and HTN emergency. Check echo. On ASA. On therapeutic enoxaparin. Cards consult (4) Creatinine elevation: PLAN: Suspect CKD, no baseline labs to compare to in [facility]. Monitor closely with diuresis. (5) Diabetes mellitus, type 2: QUALIFIERS: Diabetes mellitus mcfp insulin use: without mcfp use Diabetes mellitus complication status: without complication Qualified Code(s): E11.9 - Type 2 diabetes mellitus without complications PLAN: Uncontrolled a1c 10.4. On no home medications. Start SSI, and 10 units of glargine. PLAN: Plan Possible bronchitis: GGO throughout CT. Suspect due to CHF, but will check for COVID 19, influenza, and viral respiratory panel. Erectile dysfunction; likely hypertensive and DM associated. Hold on as needed sildenafil DVT prophylaxis - Not indicated as pt already anticoagulated. Transfer to PCU. Charges/Coding Visit Charges Inpatient E&M: 99490 Subs Hosp L2
[2023-03-03] MEDS: amLODIPine 5 MG Tablet PO (08:21)
[2023-03-03] MEDS: Potassium Chloride Oral Tablet 20 MEQ PO ×2 (08:21→16:12)
[2023-03-03] MEDS: Aspirin 81 MG TAB.CHEW PO (08:21)
[2023-03-03] MEDS: Lisinopril 5 MG Tablet PO (08:21)
[2023-03-03] MEDS: Magnesium Chloride 64 MG Delay Rel.Tablet PO (08:21)
[2023-03-03] MEDS: guaiFENesin 600 MG Tablet PO ×2 (08:22→20:48)
[2023-03-03] MEDS: Loratadine 10 MG Tablet PO (08:22)
[2023-03-03] MEDS: Enoxaparin 100 MG/ML Syringe SC ×2 (08:22→20:48)
[2023-03-03] MEDS: Clopidogrel Bisulfate 75 MG Tablet PO (08:23)
[2023-03-03] MEDS: Furosemide 40 MG/4 ML Vial IV (08:23)
[2023-03-03 08:52] LABS: Bedside Glucose 202 mg/dL (74-106)
[2023-03-03] MEDS: Doxycycline 100 MG in Dextrose 5%-Water (250mL Bag) 250 ML 250 MG IV ×2 (09:50→20:42)
[2023-03-03] MEDS: Insulin Glargine-YFGN 100 UNIT/ML Pen 10 UNIT SC (09:51)
[2023-03-03] MEDS: Insulin Lispro 100 UNIT/ML INSULN.PEN SC ×2 (11:52→16:12)
[2023-03-03 12:12] LABS: Bedside Glucose 287 mg/dL (74-106)
--- NOTE | 2023-03-03 12:15 | CASEMGMT ---
RAMÍREZ BOYKIN Face to Face with patient for initial transition planning/care coordination assessment. RN ASHUTOSH introduced self and role at [facility]. Patient standing at bedside, alert and oriented, significant other at bedside. Patient willing to participate in assessment and is able to answer all questions appropriately. Care providers, pharmacy, and demographics verified. Patient wishes to discharge home, denies need for home health at this time. Patient states he has no further needs or concerns at this time. CM to follow for discharge planning needs that may arise. PCP: none, PCP list provided to patient Specialists: none Preferred Pharmacy: [facility] Insurance:MMO Prescription Benefit: yes Living Will/HPOA: none LNOK: significant other Living Arrangements: Patient lives with significant other in a 2 story home. Patient is independent and able to ambulate stairs. Transportation: self, significant other DME/HHC: Patient has cpap at home. No previous HHC or SNF Disposition Plan: Patient to discharge home with family support and follow-up plans in place. Carlee MESA, RN, CM
--- NOTE | 2023-03-03 15:27 | PCM.CONS.C ---
Documented by User: Tita BERMUDEZ, PA 03/03/23 15:41 Assessment & Plan Assessment/Plan (1) Hypertensive emergency: HPI Consult Data Date of Consult: 03/03/23 HPI Narrative HPI Narrative: LATONIA IBARRA, is a 52 M who presented to [facility] ER on 03/02/23 with chest pain. He had progressive dyspnea on exertion with intermittent chest pain over the last 1.5 weeks. He notes that he had a heart cath approx 4 years ago while in [place]. Troponins have trended 115/104/106. His initial BP was 254/138. He was given IV labelalol this did decrease his BP to 191/122. Nitropaste was not given d/t his use of Viagra. He was started on a Cardene drip and transferred to ICU. He waws weaned of of his and started on amlodipine and lisinopril. Bp is now 155/91. [facility] Medical History (Updated 03/03/23 @ 16:[address] Anthony Dodd DO) Hypertension Home Medications fexofenadine 60 mg tablet (Jina Allergy) 120 mg PO DAILY allergies 03/02/23 [History Last Taken 03/02/23] magnesium 250 mg tablet 250 mg PO DAILY supplement 03/02/23 [History Last Taken 03/02/23] sildenafil 25 mg tablet (Viagra) 25 mg PO DAILY PRN sexual activity 03/02/23 [History Last Taken 03/01/23] Allergy/AdvReac Type Severity Reaction Status Date / Time Penicillins Allergy Unknown Other Verified 03/02/23 16:50 Social History Smoking Status: Former smoker ROS ROS Narrative Review of systems: Constitutional: Patient admits to severe diaphoresis that coincided with his chest pain Eyes: Patient denies visual changes ENT: Patient denies sore throat or runny nose Heart: Patient admits to chest pain that is pressure-like and worse with exertion Respiratory: Patient admits to shortness of breath at rest that is now improved. He also admits to chronic cough productive of minimal greenish sputum with blood-tinge. Gastrointestinal: Patient denies abdominal pain, nausea, vomiting or diarrhea Neurologic: Patient admits to headache but denies focal neurologic deficits Hematologic: Patient denies easy bruisability or easy bleeding Allergic: Patient denies rash, lip swelling or tongue swelling Risk Stratification Risk Stratification Applicable: Yes Age >/= 65: No >/= 3 CAD Risk Factors (HTN, HLD, DM, family hx of CAD, or current smoker): No Aspirin Use in the Past 7 Days: No Severe Angina (>/= episodes in 24 hours): Yes EKG ST Changes >/= 0.5mm: No Positive Cardiac Marker: Yes EDWIN Risk Stratification Score: 2 EDWIN % Risk: 8% Risk Charges/Coding Visit Charges Office Visits / Consults: 98063 IP Consult L4 Objective Data Vital Signs: Vital Signs Temp Pulse Resp BP Pulse Ox O2 Del Method O2 Flow Rate 96.9 F L 99 24 H 155/91 H 92 Room Air 3 03/03/23 12:00 03/03/23 14:00 03/03/23 14:00 03/03/23 14:00 03/03/23 14:00 03/03/23 14:00 03/03/23 12:00 Oxygen Flow Rate (L/min) 3 Oxygen Delivery Method Room Air Weight: 247 lb 2.211 oz Body Mass Index (BMI) 36.5 Intake & Output: Intake and Output for Last 24 Hours 03/01/23 03/02/23 03/03/23 23:59 23:59 23:59 Intake Total 510.00 / 810.00 1607.08 / 1607.08 Output Total 800 / 2300 4450 / 4450 Balance -290.00 / -1490.00 -2842.92 / -2842.92 Lab / Micro Data 03/03/23 04:00 03/03/23 04:00 Labs: Laboratory Results - last 24 hr 03/02/23 16:45: WBC 9.8, RBC 5.89, Hgb 14.9, Hct 48.3, MCV 82.0, MCH 25.3 L, MCHC 30.8 L, RDW Std Deviation 41.5, RDW Coeff of Vanessa 14.0, Plt Count 336, MPV 10.6, Immature Gran % (Auto) 0.500, Neut % (Auto) 70.6 H, Lymph % (Auto) 19.3, [place] % (Auto) 7.2, Eos % (Auto) 1.6, Baso % (Auto) 0.8, Absolute Neuts (auto) 6.9, Absolute Lymphs (auto) 1.89, Nucleated RBC % 0, Sodium 139, Potassium 3.7, Chloride 108 H, Carbon Dioxide 27.0, Anion Gap 4 L, BUN 25 H, Creatinine 1.54 H, Est GFR (MDRD) Af Amer 62, Est GFR (MDRD) Non-Af 51 L, BUN/Creatinine Ratio 16.2, Glucose 214 H, Calcium 8.5, Troponin I High Sens 115 H, B-Natriuretic Peptide 148.7 H 03/02/23 19:02: Troponin I High Sens 104 H 03/02/23 20:50: Urine Color Yellow, Urine Clarity Clear, Urine pH 6.5, Ur Specific [place] 1.010, Urine Protein Negative, Urine Glucose (UA) 250 H, Urine Ketones Negative, Urine Occult Blood Negative, Urine Nitrite Negative, Urine Bilirubin Negative, Urine Urobilinogen Normal, Ur Leukocyte Esterase Negative, Urine RBC 0 SEEN, Urine WBC 0 SEEN, Ur Squamous Epith Cells 0 SEEN, Urine Bacteria 0 SEEN, Urine Mucus 0 SEEN, Urine Opiates Screen NEGATIVE, Urine Methadone Screen NEGATIVE, Ur Barbiturates Screen NEGATIVE, Ur Phencyclidine Scrn NEGATIVE, Ur Amphetamines Screen NEGATIVE, MDMA (Ecstasy) Screen NEGATIVE, U Benzodiazepines Scrn NEGATIVE, Urine Cocaine Screen NEGATIVE, U Cannabinoids Screen NEGATIVE, Ur Drug Screen Comment 03/02/23 22:45: Hemoglobin A1c 10.6 H, Troponin I High Sens 106 H 03/03/23 04:00: WBC 8.4, RBC 5.46, Hgb 14.0, Hct 44.5, MCV 81.5, MCH 25.6 L, MCHC 31.5 L, RDW Std Deviation 40.4, RDW Coeff of Vanessa 14.0, Plt Count 294, MPV 10.3, Immature Gran % (Auto) 0.500, Neut % (Auto) 65.7, Lymph % (Auto) 21.5, [place] % (Auto) 9.7, Eos % (Auto) 1.9, Baso % (Auto) 0.7, Absolute Neuts (auto) 5.5, Absolute Lymphs (auto) 1.80, Nucleated RBC % 0, Sodium 140, Potassium 3.0 L, Chloride 108 H, Carbon Dioxide 26.0, Anion Gap 6, BUN 21 H, Creatinine 1.41 H, Estim Creat Clear Calc 61.98, Est GFR (MDRD) Af Amer 68, Est GFR (MDRD) Non-Af 56 L, BUN/Creatinine Ratio 14.9, Glucose 223 H, Calcium 8.0 L, Phosphorus 3.1, Magnesium 2.1, Total Bilirubin 0.50, AST 24, ALT 52, Alkaline Phosphatase 84, Total Protein 6.4, Albumin 2.7 L, Globulin 3.7, Albumin/Globulin Ratio 0.7 L, TSH 1.78 03/03/23 08:26: POC Glucose 202 H 03/03/23 11:50: POC Glucose 287 H Micro: Microbiology 03/03/23 08:50 Mucosa - Nasopharyngeal Respiratory Panel (PCR) - Final 03/03/23 10:00 Nasal Secretion SARS-CoV-2 Antigen (Rapid) - Final Cardiology Labs/Tests 03/02/23 16:45: WBC 9.8, RBC 5.89, Hgb 14.9, Hct 48.3, MCV 82.0, MCH 25.3 L, MCHC 30.8 L, Plt Count 336, MPV 10.6, Immature Gran % (Auto) 0.500, Neut % (Auto) 70.6 H, Lymph % (Auto) 19.3, [place] % (Auto) 7.2, Eos % (Auto) 1.6, Baso % (Auto) 0.8, Absolute Neuts (auto) 6.9, Nucleated RBC % 0, Sodium 139, Potassium 3.7, Chloride 108 H, Carbon Dioxide 27.0, Anion Gap 4 L, BUN 25 H, Creatinine 1.54 H, Est GFR (MDRD) Af Amer 62, Est GFR (MDRD) Non-Af 51 L, BUN/Creatinine Ratio 16.2, Glucose 214 H, Calcium 8.5, B-Natriuretic Peptide 148.7 H 03/02/23 20:50: Urine Color Yellow, Urine Clarity Clear, Urine pH 6.5, Ur Specific [place] 1.010, Urine Protein Negative, Urine Glucose (UA) 250 H, Urine Ketones Negative, Urine Occult Blood Negative, Urine Nitrite Negative, Urine Bilirubin Negative, Urine Urobilinogen Normal, Ur Leukocyte Esterase Negative, Urine RBC 0 SEEN, Urine WBC 0 SEEN 03/02/23 22:45: Hemoglobin A1c 10.6 H 03/03/23 04:00: WBC 8.4, RBC 5.46, Hgb 14.0, Hct 44.5, MCV 81.5, MCH 25.6 L, MCHC 31.5 L, Plt Count 294, MPV 10.3, Immature Gran % (Auto) 0.500, Neut % (Auto) 65.7, Lymph % (Auto) 21.5, [place] % (Auto) 9.7, Eos % (Auto) 1.9, Baso % (Auto) 0.7, Absolute Neuts (auto) 5.5, Nucleated RBC % 0, Sodium 140, Potassium 3.0 L, Chloride 108 H, Carbon Dioxide 26.0, Anion Gap 6, BUN 21 H, Creatinine 1.41 H, Est GFR (MDRD) Af Amer 68, Est GFR (MDRD) Non-Af 56 L, BUN/Creatinine Ratio 14.9, Glucose 223 H, Calcium 8.0 L, Phosphorus 3.1, Magnesium 2.1, Total Bilirubin 0.50 Rhythm: EKG: ECHO: Stress Test: Cardiac Cath: PCI: CT Surgery: Holter monitor: EPS: PPM: CXR: Chest CT Scan: Radiography Diagnostic Testing: Radiology Impression Chest CTA 03/02/23 17:04 IMPRESSION: Probable congestive failure with small pleural effusions.. Cannot definitively exclude coexisting inflammatory disease. No evidence for pulmonary embolus Electronically Signed: Arcadio Freire MD at 18:15 EST , Chest X-Ray 03/03/23 05:55 IMPRESSION: 1. Mild cardiomegaly. 2. No evidence for acute cardiopulmonary pathology. Electronically Signed: Doug Simmons MD at 6:32 EST , Documented by User: Dr. Tavares Velazquez MD 03/03/23 18:33 Assessment & Plan Assessment/Plan (1) Hypertensive emergency: HPI Consult Data Date of Consult: 03/03/23 HPI Narrative HPI Narrative: LATONIA IBARRA, is a 52 M who presented to [facility] ER on 03/02/23 with chest pain. He had progressive dyspnea on exertion with intermittent chest pain over the last 1.5 weeks. He notes that he had a heart cath approx 4 years ago while in [place]. Troponins have trended 115/104/106. His initial BP was 254/138. He was given IV labelalol this did decrease his BP to 191/122. Nitropaste was not given d/t his use of Viagra. He was started on a Cardene drip and transferred to ICU. He was weaned of of his and started on amlodipine and lisinopril. Bp is now 155/91. Reviewed the echocardiogram which revealed LV function preserved Likely elevation of mild troponin secondary to hypertensive emergency Consider to evaluate further as an outpatient with Arvind yeager when his blood pressure is well controlled. While admitted if he had any symptoms of chest pain. We will consider further assessment by cardiac catheterization. I concur with cardiac care plan as per midlevel note and documentation We will continue to monitor and follow-up this patient clinically [facility] Medical History (Updated 03/03/23 @ 16:[address] Anthony Dodd DO) Hypertension Home Medications fexofenadine 60 mg tablet (Jina Allergy) 120 mg PO DAILY allergies 03/02/23 [History Last Taken 03/02/23] magnesium 250 mg tablet 250 mg PO DAILY supplement 03/02/23 [History Last Taken 03/02/23] sildenafil 25 mg tablet (Viagra) 25 mg PO DAILY PRN sexual activity 03/02/23 [History Last Taken 03/01/23] Allergy/AdvReac Type Severity Reaction Status Date / Time Penicillins Allergy Unknown Other Verified 03/02/23 16:50 Social History Smoking Status: Former smoker Risk Stratification Age >/= 65: No EDWIN Risk Stratification Score: 2 EDWIN % Risk: 8% Risk Lab / Micro Data 03/03/23 04:00 03/03/23 04:00
[2023-03-03] MEDS: Potassium Chloride Oral Tablet 20 MEQ 60 MEQ PO (18:00)
[2023-03-03 18:21] LABS: Bedside Glucose 256 mg/dL (74-106)
--- NOTE | 2023-03-03 18:28 | NURSING ---
report called to RAMÍREZ aGrcia in PCU. Patient transferred to PCU via wheelchair by cristóbal Mejia.
--- NOTE | 2023-03-03 18:58 | NURSING ---
Pt arrived from ICU as a transfer. He is alert and oriented x3. into see pt and he said he will have a heart cath in the am of 03/04.
[2023-03-03] MEDS: Atorvastatin Calcium 80 MG Tablet PO (20:48)
[2023-03-03] MEDS: hydrALAZINE 20 MG/ML Vial 10 MG IV (21:17)
[2023-03-03 21:36] LABS: Bedside Glucose 228 mg/dL (74-106)
[2023-03-03] MEDS: Labetalol (Prefilled) 20 MG/4 ML 40 MG IV (23:16)
[2023-03-03] MEDS: 0.9% Saline Lock 10 ML Syringe IV (23:17)
[2023-03-04] VITALS (21 sets, daily range): BP systolic 134–172; BP diastolic 82–111; PULSE 77–93; RESP 16–20; TEMP 36.1–36.7; O2SAT 96–100; BMI 36.5
[2023-03-04] MEDS: amLODIPine 5 MG Tablet PO (06:20)
[2023-03-04] MEDS: Clopidogrel Bisulfate 75 MG Tablet PO (06:20)
[2023-03-04] MEDS: Aspirin 81 MG TAB.CHEW PO (06:20)
[2023-03-04] MEDS: Lisinopril 5 MG Tablet PO (06:20)
[2023-03-04] MEDS: 0.9% Saline Lock 10 ML Syringe IV ×2 (06:23→11:09)
[2023-03-04] MEDS: hydrALAZINE 20 MG/ML Vial 10 MG IV ×2 (06:23→17:08)
[2023-03-04 06:50] LABS: Bedside Glucose 223 mg/dL (74-106)
[2023-03-04 07:10] LABS: Anion Gap 5 (5-15); BUN 18 mg/dL (7-18); BUN/Creat Ratio 12.3 RATIO (10-20); Calcium,Total 8.5 mg/dL (8.5-10.1); Chloride 106 mmol/L (98-107); Cholesterol 163 mg/dL (200); Creatinine, Serum 1.46 mg/dL (0.70-1.30); EST Glomerular Filtration Rate 54 mL/min (>60); Est Glom Filt Rate - Afr Amer 65 mL/min (>60); Estimated Creatinine Clearance 59.86 ml/min; Glucose 189 mg/dL (74-106); High Density Lipoprotein 34 mg/dL; Magnesium 2.3 mg/dL (1.6-2.6); Potassium 3.6 mmol/L (3.5-5.1); Sodium Level 138 mmol/L (136-145); Triglycerides 161 mg/dL; Very Low Density Lipoprotein 32 mg/dL (5-40)
--- NOTE | 2023-03-04 08:38 | PN.HOSP_ITS ---
Reason for Visit Reason for Visit: Diagnoses Type 2 diabetes mellitus without complications (03/02/23) Hypertensive emergency (03/02/23) Heart failure, unspecified (03/02/23) Other specified abnormal findings of blood chemistry (03/02/23) Subjective Subjective Feels well. No events Objective Data Objective Data Vital Signs: Vital Signs Temp Pulse Resp BP Pulse Ox O2 Del Method O2 Flow Rate 36.4 C L 81 20 H 172/111 H 98 Room Air 3 03/04/23 06:20 03/04/23 06:23 03/04/23 06:20 03/04/23 06:20 03/04/23 06:20 03/04/23 06:20 03/03/23 12:00 FiO2 21 03/04/23 01:00 Oxygen Flow Rate (L/min) 3 Oxygen Delivery Method Room Air Weight: 112.1 kg Body Mass Index (BMI) 36.5 Intake & Output: Intake and Output for Last 24 Hours 03/02/23 03/03/23 03/04/23 23:59 23:59 23:59 Intake Total 510.00 / 810.00 2187.08 / 2487.08 360 / 360 Output Total 800 / 2300 5400 / 5400 Balance -290.00 / -1490.00 -3212.92 / -2912.92 360 / 360 Lab / Micro Data 03/03/23 04:00 03/04/23 05:30 Labs: Laboratory Results - last 24 hr 03/03/23 08:26: POC Glucose 202 H 03/03/23 11:50: POC Glucose 287 H 03/03/23 16:11: POC Glucose 256 H 03/03/23 20:48: POC Glucose 228 H 03/04/23 05:30: Sodium 138, Potassium 3.6, Chloride 106, Carbon Dioxide 27.0, Anion Gap 5, BUN 18, Creatinine 1.46 H, Estim Creat Clear Calc 59.86, Est GFR (MDRD) Af Amer 65, Est GFR (MDRD) Non-Af 54 L, BUN/Creatinine Ratio 12.3, Glucos e 189 H, Calcium 8.5, Magnesium 2.3, Triglycerides 161, Cholesterol 163, LDL Cholesterol 97, VLDL Cholesterol 32, HDL Cholesterol 34 L 03/04/23 06:25: POC Glucose 223 H Micro: Microbiology 03/03/23 08:50 Mucosa - Nasopharyngeal Influenza Types A,B Direct FA (TAMIKA) - Final 03/03/23 08:50 Mucosa - Nasopharyngeal Respiratory Panel (PCR) - Final 03/03/23 10:00 Nasal Secretion SARS-CoV-2 Antigen (Rapid) - Final Radiography Diagnostic Testing: Radiology Impression Echocardiogram 03/02/23 19:53 Interpretation Summary The estimated ejection fraction is 45-50 %. Moderate concentric left medical hypertrophy With interventricular septal diameter of 1.4 cm, left ventricular posterior wall diameter 1.9 cm. Moderate left atrial enlargement No previous study to compare Ordering Physician: Elder Russo Performed By: Christian Bosch RCS Physical Exam Const alert and no apparent distress Resp normal respiratory effort and no retractions Cardio regular rate, regular rhythm and S1 normal heart sound GI normal to inspection, nondistended, normoactive bowel sounds, soft to palpation and non-tender Assessment & Plan Assessment/Plan (1) Hypertensive emergency: PLAN: POA: Hypertensive emergency with blood pressure of 254/138 mm Hg present on admission with concomitant chest pain, SOB and headache Stared on nicardipine gtt. Blood pressure greatly improved after initiation of nicardipine gtt. DC gtt. Amlodipine 5. Increase ACEi from 5 to 20. UDS negative. Hold off on B-blockers for now given acute CHF. (2) CHF (congestive heart failure): QUALIFIERS: Heart failure chronicity: acute Heart failure type: unspecified Qualified Code(s): I50.9 - Heart failure, unspecified PLAN: Acute. Resolved. may be related with HTN emergency. Question if he had flash pulmonary edema. On Furosemide IV, change to PO Start ACEi Echo shows an EF of 45-50%. Moderate LAE. Moderate concentric LVH. (3) Elevated troponin: PLAN: Unclear significance. I suspect demand ischemia from CHF and HTN emergency. Check echo. On ASA. On therapeutic enoxaparin. Cards consult (4) Creatinine elevation: PLAN: Suspect CKD, no baseline labs to compare to in [facility]. Stable (5) Diabetes mellitus, type 2: QUALIFIERS: Diabetes mellitus complication status: without complication Diabetes mellitus custodial insulin use: without custodial use Qualified Code(s): E11.9 - Type 2 diabetes mellitus without complications PLAN: Uncontrolled a1c 10.4. On no home medications. Start SSI, Elevated despite 10 units of glargine, increase to 20 unites. PLAN: Plan Possible bronchitis: GGO throughout CT. Suspect due to CHF, but will check for COVID 19, influenza, and viral respiratory panel. Erectile dysfunction; likely hypertensive and DM associated. Hold on as needed sildenafil DVT prophylaxis - Not indicated as pt already anticoagulated. Charges/Coding Visit Charges Inpatient E&M: 19009 Subs Hosp L2
[2023-03-04] MEDS: 0.9% Normal Saline (1000mL) 1,000 ML 75 ML IV (11:15)
[2023-03-04 11:35] LABS: Bedside Glucose 192 mg/dL (74-106)
--- NOTE | 2023-03-04 11:37 | PN.CARD_ITS ---
<Statement entered by Tavares Velazquez MD - 03/04/23 17:19> Pt seen & evaluated w/MEAGAN. I personally interviewed & exam the pt. I was involved in all aspects of pt's orders, interpretation of results & treatment Subjective Subjective Pt seen and examined today. He does not have any chest pain, palpitations or SOB. No events over night. Objective Data Vital Signs: Vital Signs Temp Pulse Resp BP Pulse Ox O2 Del Method O2 Flow Rate 98.1 F 84 18 159/94 H 98 Room Air 6 03/04/23 10:48 03/04/23 10:48 03/04/23 10:48 03/04/23 10:48 03/04/23 10:48 03/04/23 10:48 03/04/23 07:32 FiO2 21 03/04/23 01:00 Oxygen Flow Rate (L/min) 6 Oxygen Delivery Method Room Air Weight: 247 lb 2.211 oz Body Mass Index (BMI) 36.5 Intake & Output: Intake and Output for Last 24 Hours 03/02/23 03/03/23 03/04/23 23:59 23:59 23:59 Intake Total 510.00 / 810.00 2187.08 / 2487.08 360 / 360 Output Total 800 / 2300 5400 / 5400 Balance -290.00 / -1490.00 -3212.92 / -2912.92 360 / 360 Lab / Micro Data 03/03/23 04:00 03/04/23 05:30 Labs: Laboratory Results - last 24 hr 03/03/23 11:50: POC Glucose 287 H 03/03/23 16:11: POC Glucose 256 H 03/03/23 20:48: POC Glucose 228 H 03/04/23 05:30: Sodium 138, Potassium 3.6, Chloride 106, Carbon Dioxide 27.0, Anion Gap 5, BUN 18, Creatinine 1.46 H, Estim Creat Clear Calc 59.86, Est GFR (MDRD) Af Amer 65, Est GFR (MDRD) Non-Af 54 L, BUN/Creatinine Ratio 12.3, Glucose 189 H, Calcium 8.5, Magnesium 2.3, Triglycerides 161, Cholesterol 163, LDL Cholesterol 97, VLDL Cholesterol 32, HDL Cholesterol 34 L 03/04/23 06:25: POC Glucose 223 H 03/04/23 11:05: POC Glucose 192 H Micro: Microbiology 03/03/23 08:50 Mucosa - Nasopharyngeal Influenza Types A,B Direct FA (TAMIKA) - Final 03/03/23 08:50 Mucosa - Nasopharyngeal Respiratory Panel (PCR) - Final 03/03/23 10:00 Nasal Secretion SARS-CoV-2 Antigen (Rapid) - Final Cardiology Labs/Tests 03/04/23 05:30: Sodium 138, Potassium 3.6, Chloride 106, Carbon Dioxide 27.0, Anion Gap 5, BUN 18, Creatinine 1.46 H, Est GFR (MDRD) Af Amer 65, Est GFR (MDRD) Non-Af 54 L, BUN/Creatinine Ratio 12.3, Glucose 189 H, Calcium 8.5, Magnesium 2.3, Triglycerides 161, Cholesterol 163, LDL Cholesterol 97, VLDL Cholesterol 32, HDL Cholesterol 34 L Rhythm: NSR Radiography Diagnostic Testing: Radiology Impression Echocardiogram 03/02/23 19:53 Interpretation Summary The estimated ejection fraction is 45-50 %. Moderate concentric left medical hypertrophy With interventricular septal diameter of 1.4 cm, left ventricular posterior wall diameter 1.9 cm. Moderate left atrial enlargement No previous study to compare Ordering Physician: Elder Russo Performed By: Christian Bosch RCS Physical Exam Const alert and no apparent distress HEENT normocephalic, head/scalp atraumatic and hearing grossly normal bilaterally Eyes PERRL, EOMs intact bilaterally and conjunctivae normal Resp normal respiratory effort, no retractions, no use of accessory muscles and clear to auscultation bilaterally Cardio regular rate, regular rhythm, S1 normal heart sound, S2 normal heart sound, no murmurs, no rub, no gallops and no clicks GI normal to inspection, nondistended, normoactive bowel sounds, soft to palpation, non-tender and non-distended Assessment & Plan Assessment/Plan (1) Hypertensive emergency: (2) Elevated troponin: (3) CHF (congestive heart failure): QUALIFIERS: Heart failure type: unspecified Heart failure chronicity: acute Qualified Code(s): I50.9 - Heart failure, unspecified (4) Moderate left ventricular hypertrophy: PLAN: Plan * Will plan on a heart cath today to assess. Will need to pay attention to his renal function. If this is normal then his elevated troponin is likely related to demand ischemia from his elevated BP. * BP improving, will continue to adjust medications. Will increase his lisinopril, start on Coreg and continue with his Norvasc. * Will plan on following as an OP. Charges/Coding Visit Charges Inpatient E&M: 83468 Subs Hosp L3
[2023-03-04] MEDS: Doxycycline 100 MG in Dextrose 5%-Water (250mL Bag) 250 ML 250 MG IV (12:00)
--- NOTE | 2023-03-04 13:57 | PCM.OP.PRO ---
Procedure Report Date of Procedure: 03/04/23 Procedure performed; 1. Moderate sedation 2. Selective left angiography 3. Selective right cholangiography 4. Measurement of LVEDP 5. Pullback pressure. 6. Placement of TR band to close the right radial artery arteriotomy site. Preprocedure diagnosis 52-year-old patient with history of hypertension, diabetes mellitus, hypertensive emergency with CHF/diastolic dysfunction Patient has elevated troponins on admission with symptoms of chest pain. And was treated in the intensive care unit Due to symptoms of chest pain and elevated cardiac biomarker he underwent cardiac catheterization. His creatinine level was elevated to 1.45 therefore we used a minimal amount of contrast. Total amount of contrast used is only 30 cc.. Noted blood pressure was elevated in the Sales Communications Manager and patient was given hydralazine 10 mg IV. Consent; Risk and benefit of the procedure explained in detail patient agreed to proceed informed consent obtained. Diagnostic catheter used 1. 5 Iraqi JL 3.5 2. 5 Iraqi R. Agency 3. 5 Iraqi JR4 Procedure in detail; Under fluoroscopic guidance we will proceed with 5 Iraqi JL 3 5 advanced [place] cannulated the left main without difficulty Selective angiographic view of CT views for the left system obtained Following this we used are marked and cannulated the ostium of the RCA and single views of the RCA obtained JR4 catheter was used to cross the aortic valve and placed in the mid ventricle Measurement of LVEDP performed On pullback pressure was performed. Following this or catheter removed Hemostasis maintained with manual pressure with no complication in the Sales Communications Manager Findings hemodynamic LVEDP measuring around 12 mmHg There is no systolic gradient across aortic valve. Coronary angiography findings; 1. Left main coronary is normal angiographically bifurcating into LAD and left circumflex 2. Left anterior descending artery is normal angiographically with abundant septal branches and prominent there is diagonal which is normal 3. The left circumflex is normal 4. RCA is large dominant and normal angiographically. Conclusion recommendation; This patient with history of diabetes Hypertension which is not well controlled with hypertensive emergencies Noted elevated creatinine level Underwent cardiac catheterization due to elevated troponins as well as due to presentation with symptoms of chest pain We used a minimal amount of contrast of around 30 cc with normal coronary arteries a dominant RCA Recommendation medical therapy with control of diabetes and hypertension Follow-up with data operations director at [facility] No complication in the Sales Communications Manager. Tavares Velazquez MD,FACC,[facility]
[2023-03-04] MEDS: Lisinopril 20 MG Tablet PO (15:56)
[2023-03-04] MEDS: Potassium Chloride Oral Tablet 20 MEQ PO (15:57)
[2023-03-04] MEDS: Loratadine 10 MG Tablet PO (15:57)
[2023-03-04] MEDS: Magnesium Chloride 64 MG Delay Rel.Tablet PO (15:57)
[2023-03-04] MEDS: guaiFENesin 600 MG Tablet PO ×2 (15:59→22:35)
[2023-03-04 16:50] LABS: Bedside Glucose 202 mg/dL (74-106)
[2023-03-04] MEDS: Insulin Lispro 100 UNIT/ML INSULN.PEN SC (17:03)
[2023-03-04] MEDS: Furosemide 40 MG Tablet PO (19:06)
[2023-03-04] MEDS: Carvedilol 3.125 MG TABLET PO (22:33)
[2023-03-04] MEDS: Enoxaparin 100 MG/ML Syringe SC (22:34)
[2023-03-04] MEDS: Atorvastatin Calcium 80 MG Tablet PO (22:34)
[2023-03-04] MEDS: Insulin Glargine-YFGN 100 UNIT/ML Pen 20 UNIT SC (22:40)
[2023-03-04 23:01] LABS: Bedside Glucose 193 mg/dL (74-106)
[2023-03-05] MEDS: 0.9% Normal Saline (1000mL) 1,000 ML 75 ML IV (00:59)
[2023-03-05 04:20] VITALS: BP 153/97; PULSE 94; RESP 16; TEMP 36.6; O2SAT 96
[2023-03-05 05:36] VITALS: BMI 36.6
[2023-03-05] MEDS: Insulin Lispro 100 UNIT/ML INSULN.PEN SC (07:07)
[2023-03-05 07:35] LABS: Bedside Glucose 166 mg/dL (74-106)
[2023-03-05 07:53] LABS: Anion Gap 6 (5-15); BUN 18 mg/dL (7-18); BUN/Creat Ratio 12.2 RATIO (10-20); Calcium,Total 8.4 mg/dL (8.5-10.1); Chloride 111 mmol/L (98-107); Creatinine, Serum 1.47 mg/dL (0.70-1.30); EST Glomerular Filtration Rate 54 mL/min (>60); Est Glom Filt Rate - Afr Amer 65 mL/min (>60); Estimated Creatinine Clearance 59.45 ml/min; Glucose 153 mg/dL (74-106); Potassium 3.9 mmol/L (3.5-5.1); Sodium Level 140 mmol/L (136-145)
[2023-03-05 07:54] VITALS: O2SAT 98
[2023-03-05] MEDS: Aspirin 81 MG TAB.CHEW PO (09:07)
[2023-03-05] MEDS: Loratadine 10 MG Tablet PO (09:07)
[2023-03-05] MEDS: Carvedilol 3.125 MG TABLET PO (09:07)
[2023-03-05] MEDS: Enoxaparin 100 MG/ML Syringe SC (09:08)
[2023-03-05] MEDS: Furosemide 40 MG Tablet PO (09:08)
[2023-03-05] MEDS: Potassium Chloride Oral Tablet 20 MEQ PO (09:08)
[2023-03-05] MEDS: guaiFENesin 600 MG Tablet PO (09:09)
[2023-03-05] MEDS: amLODIPine 5 MG Tablet PO (09:09)
[2023-03-05] MEDS: Clopidogrel Bisulfate 75 MG Tablet PO (09:09)
[2023-03-05] MEDS: Magnesium Chloride 64 MG Delay Rel.Tablet PO (09:09)
[2023-03-05] MEDS: Lisinopril 20 MG Tablet PO (09:10)
--- NOTE | 2023-03-05 09:52 | PN.HOSP_ITS ---
Reason for Visit Reason for Visit: Diagnoses Type 2 diabetes mellitus without complications (03/02/23) Hypertensive emergency (03/02/23) Heart failure, unspecified (03/02/23) Cardiomegaly (03/02/23) Other specified abnormal findings of blood chemistry (03/02/23) Subjective Subjective Feels well. No events overnight. Objective Data Objective Data Vital Signs: Vital Signs Temp Pulse Resp BP Pulse Ox O2 Del Method O2 Flow Rate 36.6 C 94 16 153/97 H 98 Room Air 6 03/05/23 04:20 03/05/23 04:20 03/05/23 04:20 03/05/23 04:20 03/05/23 07:54 03/05/23 07:54 03/04/23 07:32 FiO2 21 03/05/23 03:45 Oxygen Flow Rate (L/min) 6 Oxygen Delivery Method Room Air Weight: 112.3 kg Body Mass Index (BMI) 36.6 Intake & Output: Intake and Output for Last 24 Hours 03/03/23 03/04/23 03/05/23 23:59 23:59 23:59 Intake Total 2187.08 / 2487.08 620 / 620 1000 / 1000 Output Total 5400 / 5400 Balance -3212.92 / -2912.92 620 / 620 1000 / 1000 Lab / Micro Data 03/03/23 04:00 03/05/23 06:55 Labs: Laboratory Results - last 24 hr 03/04/23 11:05: POC Glucose 192 H 03/04/23 15:21: POC Glucose 202 H 03/04/23 22:39: POC Glucose 193 H 03/05/23 06:55: Sodium 140, Potassium 3.9, Chloride 111 H, Carbon Dioxide 23.0, Anion Gap 6, BUN 18, Creatinine 1.47 H, Estim Creat Clear Calc 59.45, Est GFR (MDRD) Af Amer 65, Est GFR (MDRD) Non-Af 54 L, BUN/Creatinine Ratio 12.2, Glucose 153 H, Calcium 8.4 L 03/05/23 07:07: POC Glucose 166 H Micro: Microbiology 03/03/23 08:50 Mucosa - Nasopharyngeal Influenza Types A,B Direct FA (TAMIKA) - Final 03/03/23 08:50 Mucosa - Nasopharyngeal Respiratory Panel (PCR) - Final 03/03/23 10:00 Nasal Secretion SARS-CoV-2 Antigen (Rapid) - Final Physical Exam Const alert and no apparent distress HEENT head/scalp atraumatic and moist oral mucous membranes Assessment & Plan Assessment/Plan (1) Hypertensive emergency: PLAN: POA: Hypertensive emergency with blood pressure of 254/138 mm Hg present on admission with concomitant chest pain, SOB and headache Stared on nicardipine gtt. Blood pressure greatly improved after initiation of nicardipine gtt. DC gtt. Amlodipine 5. Increase ACEi from 5 to 20. UDS negative. Hold off on B-blockers for now given acute CHF. (2) CHF (congestive heart failure): QUALIFIERS: Heart failure chronicity: acute Heart failure type: unspecified Qualified Code(s): I50.9 - Heart failure, unspecified PLAN: Acute. HFrEF. Resolved. may be related with HTN emergency. Question if he had flash pulmonary edema. On Furosemide IV, change to PO Start ACEi Echo shows an EF of 45-50%. Moderate LAE. Moderate concentric LVH. (3) Elevated troponin: PLAN: Type II demand ischemia acute CHF and HTN emergency. Check echo. On ASA. Cards consult Cardiac catheterization on the showed normal coronaries. (4) Creatinine elevation: PLAN: Suspect CKD, no baseline labs to compare to in [facility]. Stable (5) Diabetes mellitus, type 2: QUALIFIERS: Diabetes mellitus complication status: without complication Diabetes mellitus termite control service representative insulin use: without termite control service representative use Qualified Code(s): E11.9 - Type 2 diabetes mellitus without complications PLAN: Uncontrolled a1c 10.4. On no home medications. Start SSI, Elevated despite 10 units of glargine, increase to 20 units. Currently improved. Will glucometer,etc. at home. PLAN: Plan Bronchitis ruled out. Erectile dysfunction; likely hypertensive and DM associated. Hold on as needed sildenafil
[2023-03-05 10:00] VITALS: PULSE 87; RESP 18; O2SAT 96
[2023-03-05 10:20] VITALS: BP 180/126; PULSE 87; RESP 18; TEMP 36.7; O2SAT 96
--- NOTE | 2023-03-05 10:29 | DS.PCM_ITS ---
Providers Date of Admission: 03/02/23 Primary Care Physician: Aminah Primary Care Phys Consultations 03/03/23 12:50 Consult: Cardiology Routine Consulting Provider: Tavares Velazquez Reason for Consult: elevated troponin EMERGENT Consult: No MD Notified: Yes Date Notified: 03/03/23 Time Notified: 12:50 Method of Notification: Text Reason For Visit: HYPERTENSIVE EMERGENCY EITH ELEVATED TROPONIN AND Diagnosis Discharge Diagnosis (1) Hypertensive emergency: Status: Acute Code(s): I16.1 - Hypertensive emergency Plan: POA: Hypertensive emergency with blood pressure of 254/138 mm Hg present on admission with concomitant chest pain, SOB and headache Stared on nicardipine gtt. Blood pressure greatly improved after initiation of nicardipine gtt. DC gtt. Amlodipine 5. Increase ACEi from 5 to 20. UDS negative. Hold off on B-blockers for now given acute CHF. (2) CHF (congestive heart failure): Status: Acute Code(s): I50.9 - Heart failure, unspecified Qualifiers: Heart failure type: unspecified Heart failure chronicity: acute Qualified Code(s): I50.9 - Heart failure, unspecified Plan: Acute. HFrEF. Resolved. may be related with HTN emergency. Question if he had flash pulmonary edema. On Furosemide IV, change to PO Start ACEi Echo shows an EF of 45-50%. Moderate LAE. Moderate concentric LVH. (3) Elevated troponin: Status: Acute Code(s): R79.89 - Other specified abnormal findings of blood chemistry Plan: Type II demand ischemia acute CHF and HTN emergency. Check echo. On ASA. Cards consult Cardiac catheterization on the showed normal coronaries. (4) Creatinine elevation: Status: Acute Code(s): R79.89 - Other specified abnormal findings of blood chemistry Plan: Suspect CKD, no baseline labs to compare to in [facility]. Stable (5) Diabetes mellitus, type 2: Status: Acute Code(s): E11.9 - Type 2 diabetes mellitus without complications Qualifiers: Diabetes mellitus intermediate manager insulin use: without intermediate manager use Diabetes mellitus complication status: without complication Qualified Code(s): E11.9 - Type 2 diabetes mellitus without complications Plan: Uncontrolled a1c 10.4. On no home medications. Start SSI, Elevated despite 10 units of glargine, increase to 20 units. Currently improved. Will glucometer,etc. at home. Plan Bronchitis ruled out. Erectile dysfunction; likely hypertensive and DM associated. Hold on as needed sildenafil Medications at Discharge Home Medications fexofenadine 60 mg tablet (Jina Allergy) 120 mg PO DAILY allergies 03/02/23 magnesium 250 mg tablet 250 mg PO DAILY supplement 03/02/23 sildenafil 25 mg tablet (Viagra) 25 mg PO DAILY PRN sexual activity 03/02/23 amlodipine 5 mg tablet 5 mg PO DAILY #30 tabs 03/05/23 aspirin 81 mg chewable tablet 81 mg PO BREAKFAST #0 tabs 03/05/23 atorvastatin 80 mg tablet 40 mg (1/2 x 80 mg) PO QHS #30 tabs 03/05/23 carvedilol 3.125 mg tablet 3.125 mg PO BID #60 tabs 03/05/23 furosemide 40 mg tablet 40 mg PO DAILY #30 tabs 03/05/23 insulin glargine-yfgn 100 unit/mL (3 mL) subcutaneous pen 20 unit (0.2 mL) subcut QHS #15 mL 03/05/23 lisinopril 20 mg tablet 20 mg PO DAILY #30 tabs 03/05/23 potassium chloride 20 mEq tablet,extended release(part/cryst) (Klor-Con M) 20 meq PO DAILY #30 tabs 03/05/23 Hospital Course Operations None Procedures 2-D Echocardiogram and Cardiac catheterization Summary of Care Provided Minutes Spent on Discharge: 40 Hospital Course: Patient presents with chest pain, shortness of breath. Patient was noted to be extremely hypertensive with a blood pressure 254/138. Chest x-ray showed pulmonary vascular congestion. Patient was diuresed and blood pressure was aggressively controlled. Patient was started on nicardipine drip and then was switched over to amlodipine as well as lisinopril. Overall patient did well. Patient did have elevation of his troponins. Patient underwent cardiac catheterization that showed normal coronaries. Likely elevated due to his hypertensive emergency as well as flash pulmonary edema from that. Patient also has diabetes. Patient previous had diabetes in the past and had been on Lantus but was able to come off it at 1 point but his A1c was 10.6. Patient will continue with Lantus moving forward at the 20 units daily and patient will continue to check his blood sugars at home. Weight / BMI Weight Weight: 112.3 kg Body Mass Index (BMI) 36.6 ABG / Lab / Microbiology Data 03/03/23 04:00 03/05/23 06:55 Laboratory: Laboratory Results - last 24 hr 03/04/23 11:05: POC Glucose 192 H 03/04/23 15:21: POC Glucose 202 H 03/04/23 22:39: POC Glucose 193 H 03/05/23 06:55: Sodium 140, Potassium 3.9, Chloride 111 H, Carbon Dioxide 23.0, Anion Gap 6, BUN 18, Creatinine 1.47 H, Estim Creat Clear Calc 59.45, Est GFR (MDRD) Af Amer 65, Est GFR (MDRD) Non-Af 54 L, BUN/Creatinine Ratio 12.2, Glucose 153 H, Calcium 8.4 L 03/05/23 07:07: POC Glucose 166 H Microbiology: Microbiology 03/03/23 08:50 Mucosa - Nasopharyngeal Influenza Types A,B Direct FA (TAMIKA) - Final 03/03/23 08:50 Mucosa - Nasopharyngeal Respiratory Panel (PCR) - Final 03/03/23 10:00 Nasal Secretion SARS-CoV-2 Antigen (Rapid) - Final D/C Instructions Discharge Diet: 2000 Calorie Control Diet Return to work on: 03/10/23 Meaningful Use Info Meaningful Use Diagnoses (Choose all that apply): AMI and CHF AMI/Post PCI/Angioplasty Aspirin given w/in 24hrs of arrival?: Yes ASA at discharge?: Yes Antiplatelet Therapy at Discharge:: No Statins at discharge?: Yes Kristofer/ARB at discharge?: Yes Beta Clay at discharge?: Yes Done w/ Acute CA measure.: Yes Documented LVEF (%): 45 CHF KRISTOFER/ARB ordered at discharge?: Yes Documented LVEF (%): 45 Discharge Plan Admission Admit Date/Time: 03/02/23 19:54 Primary Reason for Your Visit: Hypertensive emergency Attending Provider: Anthony Dodd Primary Care Provider: Care Physician,No Primary Consulting Providers: Elder Russo; Tavares Velazquez Instructions Patient Instructions: Diabetes Food Shop Meals Prep, Diabetes Exercise Program Start, Diabetes Fitness Progress Additional Instructions / Restrictions: You presented with acute hypertensive emergency that likely led to flash pulmonary edema. Blood pressure improved without medications. He underwent cardiac catheterization that showed normal coronaries. The elevation of your cardiac markers are likely due to your blood pressure being really high and the stress that put on your heart. He also have diabetes and you will need to be on insulin glargine (also known as Lantus). Continue to check your blood sugars daily and with meals. Keep a record of those and provide this to your primary care doctor. Discharge Orders/Prescriptions Prescriptions: New amlodipine 5 mg Tablet 5 mg PO DAILY Qty: 30 0RF atorvastatin 80 mg Tablet 40 mg PO QHS Qty: 30 0RF aspirin 81 mg Tablet,Chewable 81 mg PO BREAKFAST Qty: 0 0RF carvedilol 3.125 mg Tablet 3.125 mg PO BID Qty: 60 0RF insulin glargine-yfgn 100 unit/mL (3 mL) Insulin Pen 20 unit subcut QHS Qty: 15 0RF lisinopril 20 mg Tablet 20 mg PO DAILY Qty: 30 0RF furosemide 40 mg Tablet 40 mg PO DAILY Qty: 30 0RF potassium chloride [Klor-Con M20] 20 mEq Tablet,Er Particles/Crystals 20 meq PO DAILY Qty: 30 0RF Continued magnesium 250 mg tablet 250 mg PO DAILY fexofenadine [Jina Allergy] 60 mg tablet 120 mg PO DAILY Held sildenafil [Viagra] 25 mg tablet 25 mg PO DAILY PRN (Reason: sexual activity) Hold Instructions: Resume on 03/10/23. Rx Instructions: administer 30 minutes to 4 hours before activity Other Ambulatory Orders: Glucometer (Routine) Timeframe: 1 Day Location: Determined by Patient Ordered By: Dr. Anthony Dodd Referrals / Follow Up: Care Physician,No Primary [Primary Care Provider] - Tita Cuba PA [Med Staff - [facility]] - 04/02/23 1:30 pm Disposition Disposition (needs filled in before D/C Order can be placed): Home, Self Care Charges/Coding Visit Charges Inpatient E&M: 99054 Disch Hosp >30min
--- NOTE | 2023-03-05 11:15 | CASEMGMT ---
RN CM notified that patient is discharging. Patient discharging on Lantus insulin pen. Script received for pen needles as well as glucometer for at discharge. RN CM sent script for pen needles to [facility]. RN CM in to discuss needs for at discharge. Patient states that he has taken insulin in the past. Patient states he does not have glucometer at home, script provided to take to pharmacy of choice to fill. RN CM encouraged patient to schedule appt to get established with PCP and to refer to list provided previously. Patient denies further needs at this time. Patient voiced understanding and denied further questions or concerns.
--- NOTE | 2023-03-05 11:24 | PN.CARD_ITS ---
<Statement entered by Tavares Velazquez MD - 03/05/23 17:19> Pt seen & evaluated w/MEAGAN. I personally interviewed & exam the pt. I was involved in all aspects of pt's orders, interpretation of results & treatment Subjective Subjective Pt seen and examined. Denies CP/SOB. No events overnight. Objective Data Vital Signs: Vital Signs Temp Pulse Resp BP Pulse Ox O2 Del Method O2 Flow Rate 98.1 F 87 18 180/126 H 96 Room Air 6 03/05/23 10:20 03/05/23 10:20 03/05/23 10:20 03/05/23 10:20 03/05/23 10:20 03/05/23 10:20 03/04/23 07:32 FiO2 21 03/05/23 03:45 Oxygen Flow Rate (L/min) 6 Oxygen Delivery Method Room Air Weight: 247 lb 9.266 oz Body Mass Index (BMI) 36.6 Intake & Output: Intake and Output for Last 24 Hours 03/03/23 03/04/23 03/05/23 23:59 23:59 23:59 Intake Total 2187.08 / 2487.08 620 / 620 1000 / 1000 Output Total 5400 / 5400 Balance -3212.92 / -2912.92 620 / 620 1000 / 1000 Lab / Micro Data 03/03/23 04:00 03/05/23 06:55 Labs: Laboratory Results - last 24 hr 03/04/23 11:05: POC Glucose 192 H 03/04/23 15:21: POC Glucose 202 H 03/04/23 22:39: POC Glucose 193 H 03/05/23 06:55: Sodium 140, Potassium 3.9, Chloride 111 H, Carbon Dioxide 23.0, Anion Gap 6, BUN 18, Creatinine 1.47 H, Estim Creat Clear Calc 59.45, Est GFR (MDRD) Af Amer 65, Est GFR (MDRD) Non-Af 54 L, BUN/Creatinine Ratio 12.2, Glucose 153 H, Calcium 8.4 L 03/05/23 07:07: POC Glucose 166 H Cardiology Labs/Tests 03/05/23 06:55: Sodium 140, Potassium 3.9, Chloride 111 H, Carbon Dioxide 23.0, Anion Gap 6, BUN 18, Creatinine 1.47 H, Est GFR (MDRD) Af Amer 65, Est GFR (MDRD) Non-Af 54 L, BUN/Creatinine Ratio 12.2, Glucose 153 H, Calcium 8.4 L Rhythm: NSR Physical Exam Const alert and no apparent distress HEENT normocephalic, head/scalp atraumatic and hearing grossly normal bilaterally Eyes PERRL, EOMs intact bilaterally and conjunctivae normal Resp normal respiratory effort, no retractions, no use of accessory muscles and clear to auscultation bilaterally Cardio regular rate, regular rhythm, S1 normal heart sound, S2 normal heart sound, no murmurs, no rub, no gallops and no clicks GI normal to inspection, nondistended, normoactive bowel sounds, soft to palpation, non-tender and non-distended Assessment & Plan Assessment/Plan (1) Hypertensive emergency: (2) Elevated troponin: (3) CHF (congestive heart failure): QUALIFIERS: Heart failure type: unspecified Heart failure chronicity: acute Qualified Code(s): I50.9 - Heart failure, unspecified (4) Moderate left ventricular hypertrophy: PLAN: Plan * Heart cath demonstrated normal coronary arteries. Elevated troponin likely demand ischemia. BMP similar to yesterday. * BP improving, will continue to adjust medications. Will continue his lisinopril, Coreg and Norvasc. He was asked to monitor this at home and bring log and cuff into OV that is scheduled. will continue to adjust medications on OP basis. Will also follow renal function. He may need a referral to nephrology on OP basis. Charges/Coding Visit Charges Inpatient E&M: 50131 Subs Hosp L3
[2023-03-05 12:01] LABS: Bedside Glucose 131 mg/dL (74-106)
[2023-03-05 12:41] VITALS: BP 169/98; PULSE 83; RESP 16; TEMP 36.7; O2SAT 97
== END 2023-03-05 13:49 | disposition home or self-care (01) | DRG 286 ==
LOC: ED 18:10 → ICU 22:43 → PCU 03-03 18:40
PROVIDERS: Physician Assistant; Admitting Provider Internal Medicine; Emergency Provider Emergency Medicine
DX: I16.1 Hypertensive emergency (principal); I50.21 Acute systolic (congestive) heart failure; I24.89 Other forms of acute ischemic heart disease; E11.65 Type 2 diabetes mellitus with hyperglycemia; I11.0 Hypertensive heart disease with heart failure; Z79.4 Long term (current) use of insulin; N52.9 Male erectile dysfunction, unspecified; R79.89 Other specified abnormal findings of blood chemistry; Z63.4 Disappearance and death of family member; Z79.899 Other long term (current) drug therapy; Z87.891 Personal history of nicotine dependence; Z82.49 Family history of ischemic heart disease and other diseases of the circulatory system
CPT/HCPCS: 36415; 71045; 71275; 80048; 80053; 80061; 80307; 81001; 82962; 83036; 83735; 83880; 84100; 84443; 84484; 85025; 87426; 87633; 87804; 93005; 93306; 93454; 94640; 94660; 97802; 99152; 99153; 99285; J7030; J7050; Q9957; Q9967; A4216; C1769; C1894; C8929; J1940

== ENCOUNTER → 2023-05-21 | Outpatient (CLI) | payer OTHER, SELFPAY ==
[2023-05-21 10:08] LABS: Absolute Lymphocyte Count 1.54 X10^3/uL (0.83-4.51); Absolute Neutrophil Count 5.4 X10^3/uL (2.0-7.7); Basophil# 0.07 X10^3/uL; Basophil% 0.9 % (0-1); Eosinophil# 0.29 X10^3/uL; Eosinophils% 3.6 % (0-5); Hematocrit 46.9 % (40-54); Hemoglobin 14.5 g/dL (13.0-16.5); Lymphocyte # 1.54 X10^3/ul (0.83-4.51); Lymphocyte % 19.3 % (19-41); Mean Corp Hgb Conc 30.9 g/dL (32-36); Mean Corpuscular Hgb 25.2 pg (27.0-32.0); Mean Corpuscular Volume 81.6 fL (80-94); Mean Platelet Vol. 9.9 fl (6.2-12.0); Monocyte# 0.64 X10^3/uL; NRBC Flagged by Analyzer 0 % (0-5); Neutrophil # 5.38 X10^3/uL (2.7-7.7); Neutrophil % 67.6 % (47-70); Platelet Count 289 K/mm3 (150-450); RBC Distribution Width CV 14.8 % (11.6-14.6); RBC Distribution Width SD 42.9 fl (35.1-43.9); Red Blood Count 5.75 M/mm3 (4.6-6.2)
[2023-05-21 10:58] LABS: ALB/GLOB Ratio 0.8 RATIO (0.9-2.4); AST(SGOT) 12 U/L (15-37); Alanine Aminotransfer ALT/SGPT 24 U/L (16-61); Albumin, Serum 3.3 g/dL (3.2-5.0); Alkaline Phosphatase 100 U/L (45-117); Anion Gap 5 (5-15); BUN 31 mg/dL (7-18); BUN/Creat Ratio 20.1 RATIO (10-20); Calcium,Total 9.1 mg/dL (8.5-10.1); Chloride 107 mmol/L (98-107); Cholesterol 166 mg/dL (200); Creatinine, Serum 1.54 mg/dL (0.70-1.30); EST Glomerular Filtration Rate 51 mL/min (>60); Est Glom Filt Rate - Afr Amer 62 mL/min (>60); Globulin 4.4 g/dL (2.2-4.2); Glucose 256 mg/dL (74-106); High Density Lipoprotein 31 mg/dL; Potassium 3.7 mmol/L (3.5-5.1); Protein, Total 7.7 g/dL (6.4-8.2); Sodium Level 138 mmol/L (136-145); Thyroid Stim Hormone (TSH) 2.11 uIU/mL (0.358-3.74); Triglycerides 297 mg/dL; Very Low Density Lipoprotein 59 mg/dL (5-40)
[2023-05-21 11:17] LABS: Hemoglobin A1c 10.8 % (3.8-5.6)
== END | disposition home or self-care (01) ==
LOC: MFPLAB 09:15
PROVIDERS: PCP Family Medicine; Visit Provider Family Medicine
DX: I10 Essential (primary) hypertension (principal); E11.9 Type 2 diabetes mellitus without complications
CPT/HCPCS: 36415; 80053; 80061; 83036; 84443; 85025

== ENCOUNTER → 2024-01-15 | Outpatient (CLI) | payer OTHER, SELFPAY ==
--- NOTE | 2024-01-15 14:30 | ECHOCS_ITS ---
Reason For Study: HTN Procedure This was a 2D Doppler, Color Flow transthoracic echocardiogram. The study was technically difficult. Contrast injection was performed. Exam performed in department. Left Ventricle Normal LV size. The estimated ejection fraction is 70 %. No evidence for diastolic dysfunction. No regional wall motion abnormalities noted. Right Ventricle Normal RV size. Normal systolic function. Atria The left and right atria are normal. No doppler evidence for ASD. Mitral Valve There is no mitral valve stenosis. No mitral valve insufficiency. Tricuspid Valve There is no tricuspid stenosis. Trivial tricuspid valve insufficiency. Unable to estimate RV systolic pressure due to insufficient tricuspid regurgitant envelope. Aortic Valve Trisinus/trileaflet aortic valve. There is no aortic stenosis. No aortic valve insufficiency. Pulmonic Valve There is no pulmonic valvular stenosis. No pulmonic valve insufficiency. Great Vessels Normal aortic root. Pericardium/Pleural No pericardial effusion. MMode/2D Measurements & Calculations LVIDd: 4.7 cm IVSd: 1.2 cm Ao root diam: 3.5 cm LVIDs: 3.2 cm LVPWd: 1.2 cm LA dimension: 4.7 cm FS: 32.1 % LAV(MOD-bp): 58.9 ml LVAd ap4: 35.7 cm2 SV(MOD-sp4): 86.7 ml LAV(MOD-bp) Indexed: 26.1 ml/m2 LVLd ap4: 8.4 cm LAV(MOD-sp2): 50.3 ml EDV(MOD-sp4): 126.4 ml LAV(MOD-sp4): 61.6 ml EDV(sp4-el): 129.1 ml LVAs ap4: 18.1 cm2 LVLs ap4: 6.9 cm ESV(MOD-sp4): 39.7 ml ESV(sp4-el): 40.2 ml EF(MOD-sp4): 68.6 % EF(sp4-el): 68.9 % SV(sp4-el): 89.0 ml LA A4 area: 22.2 cm2 RA A4 area: 19.9 cm2 Time Measurements MV dec time: 0.24 sec Doppler Measurements & Calculations MV E max alessandro: 69.0 cm/sec Lat Peak E' Alessandro: 4.8 cm/sec Med Peak E' Alessandro: 5.3 cm/sec MV A max alessandro: 90.4 cm/sec E/E' lat: 14.4 E/E' med: 12.9 MV E/A: 0.76 MV V2 max: 107.1 cm/sec MV P1/2t max alessandro: 80.6 cm/sec Ao V2 max: 154.4 cm/sec MV max P.6 mmHg MV P1/2t: 90.9 msec Ao max P.5 mmHg MV V2 mean: 59.1 cm/sec Ao V2 mean: 106.4 cm/sec MV mean P.7 mmHg MV dec slope: 259.8 cm/sec2 Ao mean P.2 mmHg MV V2 VTI: 22.2 cm MVA(P1/2t): 2.4 cm2 Ao V2 VTI: 26.3 cm LV V1 max: 112.1 cm/sec PA V2 max: 95.6 cm/sec LV V1 max P.0 mmHg PA max PG (full): 1.3 mmHg PA V2 mean: 66.0 cm/sec PA mean PG (full): 0.92 mmHg ECHO/Echo Complete W/ Contrast Interpretation Summary The estimated ejection fraction is 70 %. No evidence for diastolic dysfunction. Ordering Physician: Tita Cuba Referring Physician: Tita Cuba Performed By: Christian Bosch RCS
== END | disposition home or self-care (01) ==
PROVIDERS: PCP Family Medicine; Referring Provider Physician Assistant Medical; Visit Provider Physician Assistant Medical
DX: I51.7 Cardiomegaly (principal)
CPT/HCPCS: 93306; Q9957; A4216; C8929

== ENCOUNTER → 2024-11-15 | Outpatient (CLI) | payer OTHER, SELFPAY ==
--- NOTE | 2024-11-15 17:19 | RAD_ITS ---
PROCEDURE: LUMBAR SPINE 2 OR 3 VIEWS 11/15/2024 REASON FOR EXAM: LOW BACK PAIN TECHNIQUE: LUMBAR SPINE 2 OR 3 VIEWS COMPARISON: None FINDINGS: Vertebrae: No fracture or suspicious osseous lesion Discs: Mild disc space narrowing throughout the lumbar spine. Alignment: Alignment is anatomic, no pars defect or spondylolisthesis Other: No suspicious paraspinal mass, retained stool in the colon RAD/Lumbar Spine 2 or 3 Views IMPRESSION: Mild, age consistent degenerative changes, no acute findings Reading Location: [id number]
== END | disposition home or self-care (01) ==
LOC: MTRAD 17:19
PROVIDERS: PCP Family Medicine; Referring Provider Family Medicine; Visit Provider Family Medicine
DX: M54.50 Low back pain, unspecified (principal)
CPT/HCPCS: 72100